=== PATIENT | female | born 1990 | race Caucasian/White ===

== ENCOUNTER 2021-07-09 14:32 | Outpatient (RCR) | payer BC, SELFPAY ==
[2021-07-09 16:06] LABS: Beta HCG Quantitative 405.96 mIU/ML
[2021-07-12] MEDS: RHO(D) IMMUNE GLOBULIN 300 MCG/2 ML SYRINGE IM (09:52)
== END 2021-10-07 23:59 | disposition home or self-care (01) ==
LOC: ANHLAB 14:32
PROVIDERS: PCP Family Medicine; Visit Provider Obstetrics & Gynecology
DX: N93.9 Abnormal uterine and vaginal bleeding, unspecified (principal); Z29.13 Encounter for prophylactic Rho(D) immune globulin; O36.0190 Maternal care for anti-D [Rh] antibodies, unspecified trimester, not applicable or unspecified; Z3A.00 Weeks of gestation of pregnancy not specified
CPT/HCPCS: 36415; 84702; 85461; 90384; 96372; J2790

== ENCOUNTER 2021-10-22 15:25 | Outpatient (CLI) | payer BC, SELFPAY ==
--- NOTE | ~2021-10-22 | US_ITS ---
US OB <=14 wk fetus w TV DATE: 10/22/2021 16:09 INDICATION: Gestational size and date determination TECHNIQUE: Real-time imaging via transabdominal and transvaginal approaches COMPARISON: None FINDINGS: The uterus measures 9.7 cm height, 5.1 cm AP and 6.2 cm transverse dimension. An irregular intrauterine gestational sac is identified with inhomogeneous surrounding hyperechogenicity . No feta l pole or yolk sac is identified. An adjacent approximately 6 x 15 mm small fluid collection is noted consistent with small subchorionic hemorrhage. The left ovary was not visualized. Right ovary measures 2.1 x 1.1 x 2 cm, with probable 7 x 10 mm cys t. No abnormal free fluid collection is noted in the pelvis. IMPRESSION: Irregular gestational sac, suboptimal surrounding decidual reaction and adjacent subchori onic bleed. No pole or yolk sac is identified. Findings suggest nonviable gestation. Consider s hort-term follow-up ultrasound imaging. Reviewed, dictated and finalized at [facility]. Reviewed, dictated and finalized at [facility]. DEVELOPER DESIGNER IMPRESSION: Irregular gestational sac, suboptimal surrounding decidual reaction and adjacent subchorionic bleed. No pole or yolk sac is identified. Find ings suggest nonviable gestation. Consider short-term follow-up ultrasound imag ing.
== END 2021-10-22 15:26 | disposition home or self-care (01) ==
LOC: ANHIMG 15:29
PROVIDERS: PCP Family Medicine; Visit Provider Obstetrics & Gynecology
DX: O20.0 Threatened abortion (principal)
CPT/HCPCS: 76801; 76817

== ENCOUNTER 2022-08-25 18:41 | Emergency (ER) | payer BC, SELFPAY ==
[2022-08-25] VITALS (10 sets, daily range): BP systolic 115–150; BP diastolic 69–84; PULSE 82–114; RESP 18–20; TEMP 36.9; O2SAT 96–100
[2022-08-25 20:36] LABS: Appearance Urine Slightly Cloudy (Clear); Bilirubin Urine Negative (Negative); Blood Urine Negative (Negative); Color Urine Yellow (Yellow); Glucose Urine UA Negative (Negative); Ketones Urine Negative (Negative); Leukocyte Esterase Ur Negative LEU/UL (Negative); Nitrate Urine Negative (Negative); Protein Urine Negative (Negative); Urobilinogen Urine 0.2 mg/dL (<2.0); pH Urine 6.5 (5.0-9.0)
[2022-08-25 20:36] LABS: Basophils Absolute Auto 0.1 K/mm3 (0.0-0.1); Basophils Percent Auto 0.5 % (0.2-1.2); Eosinophils Absolute Auto 0.2 K/mm3 (0-0.3); Hematocrit 32.9 % (37.0-47.0); Immature Granulocyte Absolute 0.14 K/mm3 (0.00-0.031); Immature Granulocyte Percent A 1.5 % (0-0.5); Lymphocytes Absolute Auto 2.31 K/mm3 (0.9-3.2); Lymphocytes Percent Auto 24.3 % (18.3-44.2); Mean Corpuscular HGB Conc 33.4 g/dl (32-36); Mean Corpuscular Hemoglobin 29.2 pg (26-34); Mean Corpuscular Volume 87.3 fl (80-100); Mean Platelet Volume 10.5 fl (7.4-10.4); Monocytes Absolute Auto 0.9 K/mm3 (0.1-0.6); Monocytes Percent Auto 9.4 % (2.6-8.5); Neutrophils Absolute Auto 5.9 K/mm3 (1.3-6.7); Neutrophils Percent Auto 62.3 % (45.5-73.1); Platelet Count Result 256 k/mm3 (150-375); Red Blood Count 3.77 M/mm3 (4.2-5.4); Red Cell Distribution Width 13.4 % (11.5-14.5); White Blood Count 9.5 K/mm3 (4.5-10.0)
[2022-08-25 20:53] LABS: Add Urine Microscopic? YES; Bacteria Urine 2+ /hpf; Mucus Urine Rare /lpf; RBC Urine 0-2 /hpf (0-2); Squamous Epithelial Cell Urine Many /hpf (Few); WBC Urine 0-3 /hpf
[2022-08-25 20:56] LABS: Alanine Aminotransferase 16 U/L (6-35); Albumin Level 3.6 g/dL (3.5-5.1); Alkaline Phosphatase 54 U/L (38-126); Anion Gap 7 mmol/L (8-16); Aspartate Amino Transferase 17 U/L (14-36); Bilirubin,Total 0.3 mg/dL (0.2-1.3); Blood Urea Nitrogen 5 mg/dL (7-17); Carbon Dioxide 20 mmol/L (22-30); Chloride 108 mmol/L (98-107); Estimated CRCL calculation 152 ml/min; Estimated Glomerular Filt Rate > 60; Glucose 103 mg/dL (65-110); Potassium 3.8 mmol/L (3.4-5.0); Sodium 135 mmol/L (137-145)
[2022-08-25] MEDS: SODIUM CHLORIDE 0.9% IV 1,000 ML 999 ML IV CONT (21:18)
--- NOTE | 2022-08-25 21:27 | ED.HA ---
HPI - Headache General Chief Complaint: Headache Stated Complaint: 22WKS PREG, HEADACHE Time Seen by Provider: 08/25/22 19:43 Source: patient Mode of arrival: ambulatory Limitations: no limitations History of Present Illness HPI Narrative: Patient is a 32-year-old female transitioning to male, G1, P0, currently 22 weeks gestation, presenting with frontal headache. Patient reports that the pain began approximately 1 day ago. He has been taking Tylenol at home with minimal relief. He reports photophobia and phonophobia, intermittent nausea, but denies vision changes, dizziness. He called PUNCH CARD OPERATOR on-call and was referred to the ED for further evaluation to rule out possible preeclampsia. Patient denies having any previous issues with elevated blood pressures. Denies abdominal pain, vaginal bleeding, fevers, swelling. Patient sees Dr. Reeves. Related Data Allergies Allergy/AdvReac Type Severity Reaction Status Date / Time No Known Allergies Allergy Unverified 01/30/22 12:59 Review of Systems Review of Systems: CONSTITUTIONAL: Denies fever, chills, or sweats. EYES: Reports photophobia. Denies visual changes. ENT: Reports phonophobia. Denies rhinorrhea, congestion, sore throat. CARDIOVASCULAR: Denies chest pain. Denies edema. RESPIRATORY: Denies dyspnea. GASTROINTESTINAL: Reports nausea. Denies abdominal pain, vomiting. GENITOURINARY: Denies vaginal bleeding, dysuria or hematuria. NEUROLOGIC: Reports headache. Denies dizziness, numbness, or weakness. All systems reviewed & are unremarkable except as noted in HPI and below PMFSH Past Medical History Medical History ADHD Anxiety Depression IBS (irritable bowel syndrome) Surgical History Surgical History H/O bilateral mastectomy Family History Family History Father Family history of suicide Social History Social History Smoking packs per day: 0.5 Smoking cigarettes per day: 10.0 Years smoked: 4 Smoking pack-years: 2.00 Smoking status: Never smoker Tobacco type: e-cigarettes/vaping Second hand tobacco smoke exposure: No Smoking end date: 09/29/11 Alcohol intake: current Alcohol use details: rare Substance use: never Substance use type: does not use Additional occupation/education comments: home Gender identity (if verbalized by the patient): Transgender Male Sexual Orientation (if Verbalized by the Patient): Lesbian, Nichols, or Homosexual Exam Narrative: GENERAL: Well appearing, morbidly obese, non-toxic, in no acute distress. HEAD: Normocephalic, atraumatic. EYES: PERRLA/EOMI, conjunctiva clear. No pain with eye movement. NECK: Supple. No adenopathy, no masses. RESPIRATORY: Airway patent, respirations nonlabored. Clear to auscultation bilaterally, no rales, rhonchi, wheezing. CARDIOVASCULAR: Regular rate and rhythm without murmurs, rubs, or gallops. Radial pulses 2+ and equal bilaterally. ABDOMINAL: Soft, nontender, nondistended, no hepatosplenomegaly. Normoactive BS. MUSCULOSKELETAL: Moves all extremities. Strength/ROM intact without gross deformities. No edema. SKIN: Warm, dry, normal color. No rashes. NEURO: A&O X3. Speech clear. Cranial nerves II-XII grossly intact. Steady gait. No ataxic movements. Strength 5 out of 5 in upper and lower extremities bilaterally, equal sanitarian aide strength, no focal deficits. PSYCHIATRIC: Appropriate mood and affect. Normal interaction. Course Consultations Consultation #1: Discussed case with Dr. Lisa Zamarripa, PUNCH CARD OPERATOR hardwood floor installation helper, patient can follow-up in the office. No further recommendations at this time. Date: 08/25/22 Vital Signs Vital signs: Vital Signs Temperature 98.5 F 08/25/22 18:55 Pulse Rate 114 H 08/25/22 18:55 Respiratory Rate 20 08/25/22 18:55 Blo
== END 2022-08-25 22:35 | disposition home or self-care (01) ==
PROVIDERS: Emergency Provider Physician Assistant; PCP Obstetrics & Gynecology
DX: O26.892 Other specified pregnancy related conditions, second trimester (principal); R51.9 Headache, unspecified; R82.71 Bacteriuria; O99.612 Diseases of the digestive system complicating pregnancy, second trimester; K58.9 Irritable bowel syndrome, unspecified; O99.342 Other mental disorders complicating pregnancy, second trimester; F41.9 Anxiety disorder, unspecified; F90.9 Attention-deficit hyperactivity disorder, unspecified type; F32.A Depression, unspecified; Z90.13 Acquired absence of bilateral breasts and nipples; Z87.891 Personal history of nicotine dependence; Z3A.22 22 weeks gestation of pregnancy
CPT/HCPCS: 36415; 80053; 81001; 85025; 87086; 96361; 96374; 99284; J0131; J7030

== ENCOUNTER 2022-10-14 08:00 | Outpatient (RCR) | payer SELFPAY ==
[2022-10-14] MEDS: RHO(D) IMMUNE GLOBULIN 300 MCG/2 ML SYRINGE IM (08:36)
== END 2023-01-09 23:59 | disposition home or self-care (01) ==
LOC: ANHLAB 08:00
PROVIDERS: PCP Obstetrics & Gynecology; Visit Provider Obstetrics & Gynecology
DX: Z29.13 Encounter for prophylactic Rho(D) immune globulin (principal); O36.0190 Maternal care for anti-D [Rh] antibodies, unspecified trimester, not applicable or unspecified; Z3A.00 Weeks of gestation of pregnancy not specified
CPT/HCPCS: 36415; 85461; 86850; 86900; 86901; 90384; 96372; J2790

== ENCOUNTER 2022-11-18 18:37 | Observation (INO) | payer BC, SELFPAY ==
[2022-11-18] VITALS (7 sets, daily range): BP systolic 111–130; BP diastolic 57–67; PULSE 82–89; BMI 43.9
[2022-11-18 19:22] LABS: Appearance Urine Clear (Clear); Bilirubin Urine Negative (Negative); Blood Urine Trace-intact (Negative); Color Urine Yellow (Yellow); Glucose Urine UA Negative (Negative); Ketones Urine Negative (Negative); Leukocyte Esterase Ur Negative LEU/UL (NEGATIVE); Nitrate Urine Negative (Negative); Protein Urine Negative (Negative); Urobilinogen Urine 0.2 mg/dL (<2.0)
[2022-11-18 19:26] LABS: Bacteria Urine Trace /hpf; RBC Urine 0-2 /hpf (0-2); Squamous Epithelial Cell Urine Rare /hpf (Few); WBC Urine 0-3 /hpf (0-3)
[2022-11-18 19:27] LABS: Add Urine Microscopic? YES
--- NOTE | 2022-11-18 19:28 | OBADM ---
This patient, George Ramsey, admitted to the OB room OB Post 117 for observation. Patient/family oriented to hospital policies and general routines including ID bracelet, bed and alarms, visiting hours, pain management, procedures, bathroom and other care routines, personal items, smoking policy, room service/diet, and visiting hours. Patient/Family are encouraged to report perceived risks to care and to ask questions if they do not understand what they are told or what they should do.
--- NOTE | 2022-11-18 20:25 | PC.NURSE ---
Dr Reeves updated on contractions that were noted by patient and palpated. Ok to perform sve, if closed may dc home.
--- NOTE | 2022-11-25 07:39 | P.PNOB_ITS ---
OB - Triage/Final Diagnosis Visit Information Comments/Additional reasons for admission: I have assessed the risk for this patient, George Ramsey, and determined that she would benefit from observation care. Evaluation Laboratory results: Laboratory Tests 11/18/22 19:08 Urine Color Yellow Urine Appearance Clear Urine pH 7.0 Ur Specific [place] 1.010 Urine Protein Negative Urine Glucose (UA) Negative Urine Ketones Negative Ur Blood (Man) Trace-intact Urine Nitrate Negative Urine Bilirubin Negative Urine Urobilinogen 0.2 Ur Leukocyte Esterase Negative Urine RBC 0-2 Urine WBC 0-3 Ur Squamous Epith Cells Rare Urine Bacteria Trace Final Diagnosis (1) contractions: Code(s): O47.00 - False labor before 37 completed weeks of gestation, unspecified trimester Status: Acute
== END 2022-11-18 20:45 | disposition home or self-care (01) ==
PROVIDERS: Admitting Provider Obstetrics & Gynecology; PCP Family Medicine; Visit Provider Obstetrics & Gynecology
DX: O47.03 False labor before 37 completed weeks of gestation, third trimester (principal); Z3A.34 34 weeks gestation of pregnancy
CPT/HCPCS: 81001; 87086; 87088; G0378; G0379

== ENCOUNTER 2022-12-23 11:08 | Observation (INO) | payer BC, SELFPAY ==
--- NOTE | 2022-12-23 11:25 | OBADM ---
This patient, George Ramsey, admitted to the OB room Labor/Delivery/Recovery 107 for observation. Patient/family oriented to hospital policies and general routines including ID bracelet, bed and alarms, visiting hours, pain management, procedures, bathroom and other care routines, personal items, smoking policy, room service/diet, and visiting hours. Patient/Family are encouraged to report perceived risks to care and to ask questions if they do not understand what they are told or what they should do.
--- NOTE | 2022-12-23 11:37 | PC.NURSE ---
Dr Reeves notified of adm c/o contractions. Will be down to see patient in a little bit.
--- NOTE | 2022-12-23 13:00 | WPDOBADMIT ---
Obstetrics - Admit Note Admission Note: record reviewed. Additions to the history and/or subsequent changes in the physical findings follow. 32 y/o at 38 6/7 weeks here with contractions. AVSS NST reactive TOCO: contractions irregularly ABD soft, nontender, gravid, vertex EXT nontender Cervix FT//-3. A: False labor at term P: Reviewed labor precautions. Plans elective induction next week.
--- NOTE | 2023-01-15 14:37 | PM.OBTRLD ---
OB - Triage/Final Diagnosis Visit Information Comments/Additional reasons for admission: I have assessed the risk for this patient, George Ramsey, and determined that she would benefit from observation care. Final Diagnosis (1) False labor: Code(s): O47.9 - False labor, unspecified Status: Acute
== END 2022-12-23 13:49 | disposition home or self-care (01) ==
PROVIDERS: Admitting Provider Obstetrics & Gynecology; PCP Family Medicine; Visit Provider Obstetrics & Gynecology
DX: O47.1 False labor at or after 37 completed weeks of gestation (principal); Z3A.39 39 weeks gestation of pregnancy
CPT/HCPCS: G0378

== ENCOUNTER 2022-12-25 11:02 | Inpatient (IN) | payer BC, SELFPAY ==
[2022-12-25] VITALS (139 sets, daily range): BP systolic 107–144; BP diastolic 56–88; PULSE 76–135; RESP 20; TEMP 36.3–37.2; O2SAT 93–100; BMI 46.3
--- NOTE | 2022-12-25 13:44 | P.PNAN_ITS ---
Anes - Eval Pre Procedure Procedure: labor epidural Date/Time: 12/25/22 13:45 Preop Diagnosis: labor pain Pre Op Diagnosis: IOL Patient Data Age: 32 Gender: M Height: Weight: Last Vital Signs Pulse 83 12/25/22 13:31 BP 144/86 H 12/25/22 13:31 Pulse Ox 99 12/25/22 13:38 Allergies Allergy/AdvReac Type Severity Reaction Status Date / Time No Known Allergies Allergy Unverified 01/30/22 12:59 Home Medications Medication Instructions Recorded Confirmed Type bupropion HCl 150 mg 24 hr tablet, 150 mg PO DAILY 11/18/22 11/18/22 History extended release citalopram 20 mg tablet (Celexa) 30 mg PO DAILY 11/28/22 History lorazepam 0.5 mg tablet 0.5 mg PO DAILY PRN Anxiety 11/28/22 11/28/22 History prenat.vits,rhea,ptu-otcs-kycmv 1 tablet PO DAILY 11/28/22 11/28/22 History Patient hx anesthesia problems: none Family hx anesthesia problems: none Results Review: All pre-operative results and documents have been reviewed as part of the pre- operative evaluation. [facility] Past Medical History Medical History ADHD Anxiety Depression IBS (irritable bowel syndrome) Surgical History Surgical History H/O bilateral mastectomy Family History Family History Father Family history of suicide Social History Social History Smoking packs per day: 0.5 Smoking cigarettes per day: 10.0 Years smoked: 4 Smoking pack-years: 2.00 Smoking status: Never smoker Tobacco type: e-cigarettes/vaping Second hand tobacco smoke exposure: No Smoking end date: 09/29/11 Alcohol intake: current Alcohol use details: rare Substance use: never Substance use type: does not use Living arrangements: with family Occupation/Education: other Additional occupation/education comments: home Gender identity (if verbalized by the patient): Transgender Male Sexual Orientation (if Verbalized by the Patient): Lesbian, Nichols, or Homosexual Spiritual care concerns: No Exam Day of Procedure 12/25/22 13:45 Patient weight: normal Heart: regular rate and rhythm Lungs: clear to auscultation and normal air movement Airway: Mallampati scale Neurological: alert and oriented
[2022-12-25 14:02] LABS: Basophils Percent Auto 0.4 % (0.2-1.2); Eosinophils Absolute Auto 0.1 K/mm3 (0-0.3); Eosinophils Percent Auto 0.8 % (0-4.4); Hematocrit 36.8 % (42.0-52.0); Hemoglobin 12.1 g/dL (14.0-18.0); Immature Granulocyte Absolute 0.09 K/mm3 (0.00-0.031); Immature Granulocyte Percent A 0.8 % (0-0.5); Lymphocytes Absolute Auto 1.61 K/mm3 (0.9-3.2); Lymphocytes Percent Auto 14.4 % (18.3-44.2); Mean Corpuscular HGB Conc 32.9 g/dl (32-36); Mean Corpuscular Hemoglobin 28.3 pg (26-34); Mean Platelet Volume 11.7 fl (7.4-10.4); Neutrophils Absolute Auto 8.3 K/mm3 (1.3-6.7); Neutrophils Percent Auto 74.6 % (45.5-73.1); Platelet Count Result 211 k/mm3 (150-375); Red Blood Count 4.28 M/mm3 (4.6-6.20); Red Cell Distribution Width 14.1 % (11.5-14.5); White Blood Count 11.2 K/mm3 (4.5-10.0)
[2022-12-25] MEDS: LACTATED RINGERS 1,000 ML 999 ML IV CONT (14:18)
--- NOTE | 2022-12-25 14:21 | LDADM ---
This patient, George Ramsey, was admitted to Labor/Delivery/Recovery 106 on 12/25/22 at 11:02. Plans for labor, pain management and were discussed with patient. Patient/family oriented to hospital policies and general routines including ID bracelet, bed and alarms, visiting hours, pain management, procedures, bathroom and other care routines, personal items, smoking policy, room service/diet and guest tray routines, infant security routines, and visiting hours. Patient/Family are encouraged to report perceived risks to care and to ask questions if they do not understand what they are told or what they should do. See OBIX for further documentation.
[2022-12-25] MEDS: MORPHINE SULFATE INJ (*CRX) 10 MG/ML AMP IM (14:58)
--- NOTE | 2022-12-25 16:30 | PM.IMHP ---
H&P: HPI History of Present Illness Date/Time: 12/26/22 08:55 Chief Complaint: Contractions Narrative: 32 y/o at 39 2/7 weeks here with contractions. GBS neg. Review of Systems Review of Systems: All systems reviewed & are unremarkable except as noted in HPI and below PMFSH Past Medical History Medical History ADHD Anxiety Depression IBS (irritable bowel syndrome) Surgical History Surgical History H/O bilateral mastectomy Family History Family History Father Family history of suicide Social History Social History Smoking packs per day: 0.5 Smoking cigarettes per day: 10.0 Years smoked: 4 Smoking pack-years: 2.00 Smoking status: Former smoker Tobacco type: e-cigarettes/vaping Second hand tobacco smoke exposure: No Smoking end date: 09/29/11 Alcohol intake: current Alcohol use details: rare Substance use: never Substance use type: does not use Lack of Transportation: No Lack of Food: Never True Current Housing: I Have Housing Concerned About Future Housing: No Difficulty Paying Gas/Electric Bills: No Difficulty Paying for Meds: No Currently Unemployed: No Education: Trade/Vocational Certificate Difficulty w/ Childcare or Family Care: No Living arrangements: with family Occupation/Education: other Additional occupation/education comments: home Gender identity (if verbalized by the patient): Transgender Male Sexual Orientation (if Verbalized by the Patient): Lesbian, Nichols, or Homosexual Spiritual care concerns: No Comments Female at , transitioning to male. Pronouns are he/his. Meds Home Medications and Allergies Home Medications Medication Instructions Recorded Confirmed Type bupropion HCl 150 mg 24 hr tablet, 150 mg PO DAILY 11/18/22 12/25/22 History extended release citalopram 20 mg tablet (Celexa) 30 mg PO DAILY 11/28/22 12/25/22 History lorazepam 0.5 mg tablet 0.5 mg PO DAILY PRN Anxiety 11/28/22 12/25/22 History prenat.vits,rhea,sjd-gfpg-iecwa 1 tablet PO DAILY 11/28/22 12/25/22 History Allergies Allergy/AdvReac Type Severity Reaction Status Date / Time No Known Allergies Allergy Verified 12/25/22 14:25 Vital Signs Vital Signs - 24 hr 12/25/22 13:03 12/25/22 13:08 12/25/22 13:13 Temperature Pulse Rate Respiratory Rate Blood Pressure Pulse Oximetry 100 100 98 Oxygen Delivery 12/25/22 13:16 12/25/22 13:18 12/25/22 13:21 Temperature Pulse Rate 81 Respiratory Rate Blood Pressure 143/82 H Pulse Oximetry 99 100 Oxygen Delivery 12/25/22 13:21 12/25/22 13:26 12/25/22 13:31 Temperature Pulse Rate 83 Respiratory Rate Blood Pressure 144/86 H Pulse Oximetry 97 97 98 Oxygen Delivery 12/25/22 13:35 12/25/22 13:38 12/25/22 13:52 Temperature Pulse Rate Respiratory Rate Blood Pressure Pulse Oximetry 99 99 99 Oxygen Delivery 12/25/22 13:57 12/25/22 14:01 12/25/22 14:06 Temperature Pulse Rate Respiratory Rate Blood Pressure Pulse Oximetry 99 98 100 Oxygen Delivery 12/25/22 14:11 12/25/22 14:16 12/25/22 14:21 Temperature Pulse Rate Respiratory Rate Blood Pressure Pulse Oximetry 100 100 99 Oxygen Delivery 12/25/22 14:26 12/25/22 14:31 12/25/22 14:36 Temperature Pulse Rate Respiratory Rate Blood Pressure Pulse Oximetry 99 100 100 Oxygen Delivery 12/25/22 14:41 12/25/22 14:46 12/25/22 15:05 Temperature 37.2 C Pulse Rate 84 Respiratory Rate 20 Blood Pressure 118/76 Pulse Oximetry 98 100 Oxygen Delivery 12/25/22 15:07 12/25/22 15:08 12/25/22 15:12 Temperature Pulse Rate 76 Respiratory Rate Blood Pressure 107/66 Pulse O
[2022-12-25] MEDS: LACTATED RINGERS 1,000 ML 125 ML IV CONT (17:20)
[2022-12-25] MEDS: CITALOPRAM HYDROBROMIDE 10 MG TABLET 30 MG PO (19:51)
[2022-12-25] MEDS: fentaNYL CITRATE INJ (*CRX) 100 MCG/2 ML VIAL 50 MCG IV PUSH (21:19)
[2022-12-25] MEDS: ACETAMINOPHEN/BUTALBITAL/CAFFEINE 325-50-40 MG TABLET (FIORICET) 1 TAB PO (22:39)
[2022-12-25] MEDS: fentaNYL CITRATE INJ (*CRX) 100 MCG/2 ML VIAL IV PUSH (22:45)
[2022-12-26] VITALS (341 sets, daily range): BP systolic 73–166; BP diastolic 33–133; PULSE 76–135; RESP 13–18; TEMP 36.5–37.7; O2SAT 89–100
[2022-12-26] MEDS: fentaNYL CITRATE INJ (*CRX) 100 MCG/2 ML VIAL IV PUSH ×3 (00:31→02:50)
[2022-12-26] MEDS: LACTATED RINGERS 1,000 ML 999 ML IV CONT (03:39)
[2022-12-26] MEDS: LACTATED RINGERS 1,000 ML 125 ML IV CONT ×3 (03:58→17:41)
[2022-12-26] MEDS: OXYTOCIN 30 UNITS/NS 500 ML 30 UNITS/500 ML BAG IV CONT (04:35)
[2022-12-26] MEDS: PHENYLEPHRINE 1,000 MCG/10 ML SYRINGE 100 MCG IV PUSH (04:38)
[2022-12-26] MEDS: FAMOTIDINE 20 MG/2 ML VIAL IV PUSH (06:45)
[2022-12-26] MEDS: CALCIUM CARBONATE (TUMS) 500 MG (200 MG ELEMENTAL) PO (06:50)
--- NOTE | 2022-12-26 07:43 | PM.OBPNLAB ---
Pain Control Date/time seen: 12/26/22 07:43 Pain control: tolerating well and epidural Pelvic Exam Dilation (cm): 4 station: -2 Amniotic membrane status: Ruptured Comments: meconium fluid seen Contractions Monitor mode: External Contraction pattern: Irregular Status status: Category ll
--- NOTE | 2022-12-26 09:00 | PM.OBPNLAB ---
Pain Control Date/time seen: 12/26/22 09:00 Comfortable with epidural. AROM per Dr. Lisa Zamarripa this morning. Pelvic Exam Dilation (cm): 5 Effacement (%): 90 station: -2 Amniotic membrane status: Ruptured Contractions Monitor mode: External Contraction pattern: Regular Status status: Category l Assessment and Plan Pitocin rate (mU/min): 6 Plan: continuous present management
[2022-12-26] MEDS: buPROPion HCL XL (24 HR) 150 MG TABCR PO (09:18)
[2022-12-26] MEDS: CYCLOBENZAPRINE HCL 10 MG TABLET PO (09:43)
[2022-12-26 13:57] LABS: Rapid Plasma Reagin Non-Reactive (NonReactive)
[2022-12-26] MEDS: KETOROLAC 30 MG/ML VIAL (*BKC) IV PUSH ×2 (15:05→21:59)
--- NOTE | 2022-12-26 17:54 | P.PNAN_ITS ---
Anes - Eval Final PreProcedure Day of Procedure 12/26/22 17:54 Patient weight: morbidly obese Heart: regular rate and rhythm Lungs: clear to auscultation and normal air movement Airway: Mallampati scale class II Neurological: alert and oriented Last oral intake: >/= 8 hours ASA classification: III Emergent: no Anesthetic plan: proceed Anesthesia type and monitoring: regional epidural and standard monitoring Other findings: To C/S Results Review: All pre-operative results and documents have been reviewed as part of the pre- operative evaluation. Informed Consent: The patient's anesthetic plan and its attendant risks and benefits were discussed with the patient/family/POA. Questions were solicited and answers provided to the satisfaction of the patient/family/POA.
--- NOTE | 2022-12-26 17:54 | PM.OBPNLAB ---
Pain Control Date/time seen: 12/26/22 17:54 Comments: Comfortable with epidural. Complains of neck and upper back pain. Pelvic Exam Dilation (cm): 7 Effacement (%): 90 station: -2 Amniotic membrane status: Ruptured Comments: Cervical exam unchanged for >4 hours despite adequate contractions by IUPC monitoring. Contractions Monitor mode: Internal Contraction pattern: Regular Status status: Category l Assessment and Plan Comments: A: Arrest of dilation in labor. P: Offered continued augmentation of labor vs. primary . We reviewed risks, benefits and alternatives in detail. He understands risks of surgery to include risks of anesthesia, risks of pain, infection, bleeding, blood products, thromboembolic phenomena and damage to adjacent structures such as bowel, bladder, ureters, blood vessels and nerves. He understands all these risks and elects to proceed with primary delivery.
--- NOTE | 2022-12-26 19:46 | PM.OBPRVD ---
OB - Delivery Note Procedure Delivery date: 12/26/22 Procedure: Procedures Operation Date: 12/26/22 18:30 <No data on this case meets the specified criteria> Primary low transverse delivery Intrapartal Events: Arrest of Dilation Induction method: None Delivery augmentation: Rupture of Membranes and Pitocin Delivery monitor: External FHT, External Uterine and Internal Uterine Route of delivery: Specimen: Yes (cord blood, placenta) Anesthesia type: Epidural Disposition: PACU Complications: None Narrative: The patient was taken to the operating room where he was prepared and draped in the usual sterile fashion in dorsal supine position with a leftward tilt. He received cefazolin preoperatively. Epidural anesthesia was found to be adequate. A Pfannenstiel skin incision was made and carried through to the underlying layer of the fascia. The fascia was incised in the midline and the incision was extended laterally. The fascia was dissected free of the underlying rectus muscles. The rectus muscles were in the midline. The peritoneum was identified, tented up and entered sharply. The peritoneal incision was extended superiorly and inferiorly with good visualization of the bladder. The bladder blade was placed. The vesicouterine peritoneum was identified, tented up and entered sharply. The incision was extended laterally and the bladder flap was developed. The bladder blade was replaced. The uterus was then incised sharply in a transverse fashion along the lower uterine segment. The incision was extended laterally. The infant's head was delivered atraumatically to the sterile field, followed by the body. The nose and mouth were bulb suctioned. After a delay, the cord was clamped and cut. The was handed off the field. Cord blood was collected. The placenta was removed manually and was passed off the field. The uterus was exteriorized and cleared of all clots and debris. The uterine incision was reapproximated using 0 Monocryl in a running, locked fashion. A second, imbricating layer of the same suture was run. Excellent hemostasis resulted as did excellent reapproximation of the normal anatomy. The uterus was returned the abdomen. The pelvis was irrigated copiously with warmed normal saline. Rigorous hemostasis was assured. The fascial layer was reapproximated using 0 Vicryl in a running fashion. The skin was closed with a running, subcuticular stitch of 4 0 Vicryl. Dermaflex was applied externally. Sponge, lap, needle and instrument counts were correct. The patient was taken to the recovery room in stable condition. The went to the nursery in stable condition. I was present and scrubbed the entire procedure. [place] Baby Date of : 12/26/22 Time of : 19:05 Weeks of gestation at delivery: 39 Infant gender: Female Weight (pounds): 8 Weight (ounces): 1 presentation: vertex Placenta delivery description: Manual Removal and Normal Configuration Cord Vessel Description: 3 Vessels and Delayed Cord Clamping score one minute: 7 score five minutes: 9
--- NOTE | 2022-12-26 19:50 | PM.OBDSVD ---
DS: Admitting Diagnosis Discharge Date 12/28/22 Admitting Diagnosis IUP at 39 2/7 weeks Labor DS: Discharge Diagnosis Discharge Diagnosis (1) Term : Code(s): Z34.90 - Encounter for supervision of normal , unspecified, unspecified trimester Status: Acute (2) delivery delivered: Code(s): O82 - Encounter for delivery without indication Status: Acute OB - DS: Summary OB Procedures : NST OB Procedures Intrapartum: OB Procedures: : None Peripartum Data Procedures: Procedures Operation Date: 12/26/22 18:30 <No data on this case meets the specified criteria> Time Spent with Patient Time attestation: Total time spent providing and/or coordinating discharge services: DS: Data Data Completed and Pending Labs on day of discharge: Labs from last 24 hours 12/25/22 13:53 RPR Non-reactive Discharge Plan Discharge Attending physician on discharge: Donavan Reeves Discharging Clinician: Donavan Reeves Patient Disposition: Home, Self-Care Activity: may shower, may drive after 2 weeks and pelvic rest Diet: regular Wound Care Instructions: incision open to air Discharge Instructions: Call or return if temperature above 100.4? F, increased abdominal pain, increased vaginal bleeding or any new problems. Patient Instructions: How to Stop Smoking (DC) Stand Alone Forms: General Discharge Information Follow-up/Referrals: Donavan Reeves MD [Physician] - 4 Weeks Discharge Medications: New hydrocodone-acetaminophen 5-325 mg tablet 1 - 2 tablet PO Q6H PRN (Reason: pain) Qty: 30 0RF ibuprofen 600 mg tablet 600 mg PO Q6H PRN (Reason: cramps) Qty: 30 0RF Continued lorazepam 0.5 mg Tablet 0.5 mg PO DAILY PRN (Reason: Anxiety) prenat.vits,rhea,hee-lejt-wnsdz Tablet 1 tablet PO DAILY citalopram [Celexa] 20 mg tablet 30 mg PO DAILY bupropion HCl 150 mg tablet extended release 24 hr 150 mg PO DAILY Date of admission: 12/25/22 11:02 Primary Care Provider: Marshall Lynn Admitting Provider: Donavan Reeves Attending physician on admission: Donavan Reeves Condition: Stable
[2022-12-26] MEDS: OXYTOCIN 30 UNITS/NS 500 ML 30 UNITS/500 ML BAG 125 UNITS IV CONT (20:28)
[2022-12-26] MEDS: CITALOPRAM HYDROBROMIDE 10 MG TABLET 30 MG PO (21:58)
--- NOTE | 2022-12-26 22:21 | OBPPTRN ---
Patient transferred to post room #290 via stretcher. Support person present. Oriented to unit, room, information board, rooming in, admission packet and security measures. Patient verbalizes understanding.
[2022-12-27] MEDS: DEXTROSE 5%/0.45% SOD CHL 1,000 ML 125 ML IV CONT (01:01)
[2022-12-27 04:19] VITALS: BP 115/73; PULSE 92; RESP 16; TEMP 36.6; O2SAT 97
[2022-12-27] MEDS: HYDROcodone/acetaminophen (*CRX) 10-325 MG TABLET 1 TAB PO ×6 (04:39→21:48)
[2022-12-27 05:20] LABS: Basophils Absolute Auto 0.1 K/mm3 (0.0-0.1); Basophils Percent Auto 0.5 % (0.2-1.2); Eosinophils Absolute Auto 0.1 K/mm3 (0-0.3); Eosinophils Percent Auto 0.6 % (0-4.4); Hemoglobin 10.7 g/dL (12.0-15.0); Immature Granulocyte Percent A 0.7 % (0-0.5); Lymphocytes Absolute Auto 2.08 K/mm3 (0.9-3.2); Lymphocytes Percent Auto 14.2 % (18.3-44.2); Mean Corpuscular HGB Conc 30.6 g/dl (32-36); Mean Corpuscular Hemoglobin 28.1 pg (26-34); Mean Corpuscular Volume 91.9 fl (80-100); Mean Platelet Volume 11.3 fl (7.4-10.4); Monocytes Absolute Auto 1.2 K/mm3 (0.1-0.6); Monocytes Percent Auto 7.9 % (2.6-8.5); Neutrophils Absolute Auto 11.2 K/mm3 (1.3-6.7); Neutrophils Percent Auto 76.1 % (45.5-73.1); Platelet Count Result 165 k/mm3 (150-375); Red Blood Count 3.81 M/mm3 (4.2-5.4); Red Cell Distribution Width 14.1 % (11.5-14.5); White Blood Count 14.7 K/mm3 (4.5-10.0)
--- NOTE | 2022-12-27 06:01 | PM.OBPNVD ---
OB - PN: Subj Subjective Date/time seen: 12/27/22 06:01 Patient comments: no complaints and pain well controlled baby status: doing well OB - PN: Obj Data Labs 12/27/22 04:35 Labs: Laboratory Results - last 24 hr 12/25/22 12/27/22 13:53 04:35 WBC 14.7 H RBC 3.81 L Hgb 10.7 L Hct 35.0 L MCV 91.9 D MCH 28.1 MCHC 30.6 L RDW 14.1 Plt Count 165 MPV 11.3 H Immature Gran % (Auto) 0.7 H Neut % (Auto) 76.1 H Lymph % (Auto) 14.2 L [place] % (Auto) 7.9 Eos % (Auto) 0.6 Baso % (Auto) 0.5 Lymph # (Auto) 2.08 [place] # (Auto) 1.2 H Eos # (Auto) 0.1 Baso # (Auto) 0.1 Abs Immat Gran (auto) 0.10 H Absolute Neuts (auto) 11.2 H Absolute Nucleated RBC 0.0 Nucleated RBC % 0.0 RPR Non-reactive OB - PN A/P Plan day: 1 Plan: routine care Time Spent With Patient Time: Total time spent is greater than 50% in coordination of care (as documented) at patient's floor/unit and/or counseling patient: Time with patient: less than 15 minutes Exam Const: General: cooperative, healthy appearing and comfortable Nutritional Appearance: overweight Orientation/consciousness: oriented to person, oriented to place and oriented to time GI: Inspection: normal to inspection and incision (Wound clean dry and intact) Auscultation: normal bowel sounds
[2022-12-27 07:40] VITALS: BP 108/71; PULSE 81; RESP 16; TEMP 36.6; O2SAT 98
[2022-12-27] MEDS: buPROPion HCL XL (24 HR) 150 MG TABCR PO (07:46)
[2022-12-27] MEDS: DOCUSATE SODIUM 100 MG CAPSULE PO ×2 (07:46→15:22)
--- NOTE | 2022-12-27 10:17 | WPDANLDPN2 ---
Anes-Prog Note L&D Date/Time: 12/27/22 10:17 Comfortable throughout: section Neuraxial method: epidural Epidural/Spinal procedure site: clean & non-tender Neuro status: Neuro function grossly intact. Cardiovascular status: normal Respiratory status: normal Airway patency: baseline Mental status: baseline Post-Op hydration status: normal Vital Signs: Last Vital Signs Temp 36.6 C 12/27/22 07:40 Pulse 81 12/27/22 07:40 Resp 16 12/27/22 07:40 BP 108/71 12/27/22 07:40 Pulse Ox 98 12/27/22 07:40 O2 Del Method Room Air 12/27/22 04:19 Pain score (VAS): 3/10 I/O: Intake & Output 12/26/22 12/27/22 12/27/22 23:59 07:59 15:59 Intake Total 600 600 Output Total 550 1425 Balance 50 -825 Post-procedural complaints: none Patient feedback: Patient satisfied with anesthetic care.
[2022-12-27] MEDS: IBUPROFEN 600 MG TABLET PO ×2 (10:54→18:37)
[2022-12-27 11:45] VITALS: BP 109/66; PULSE 97; RESP 16; TEMP 37.1; O2SAT 99
[2022-12-27 19:31] VITALS: BP 136/83; PULSE 100; RESP 16; TEMP 36.6; O2SAT 100
[2022-12-27] MEDS: CITALOPRAM HYDROBROMIDE 10 MG TABLET 30 MG PO (20:58)
[2022-12-28] MEDS: HYDROcodone/acetaminophen (*CRX) 10-325 MG TABLET 1 TAB PO ×3 (02:43→09:48)
[2022-12-28] MEDS: IBUPROFEN 600 MG TABLET PO ×2 (05:49→12:38)
[2022-12-28] MEDS: buPROPion HCL XL (24 HR) 150 MG TABCR PO (09:47)
[2022-12-28] MEDS: DOCUSATE SODIUM 100 MG CAPSULE PO (09:49)
[2022-12-28 09:50] VITALS: BP 118/81; PULSE 91; RESP 18; TEMP 36.3; O2SAT 99
[2022-12-28] MEDS: RHO(D) IMMUNE GLOBULIN 300 MCG/2 ML SYRINGE IM (09:50)
--- NOTE | 2022-12-28 10:50 | PM.OBPNVD ---
OB - PN: Subj Subjective Date/time seen: 12/28/22 10:50 Narrative: Pain OK. Tolerating diet. Would like to go home. OB - PN: Obj Data Labs 12/27/22 04:35 Labs: Laboratory Results - last 24 hr 12/28/22 04:57 Blood Type B Negative Antibody Screen Negative Screen Negative Baby's Blood Type B pos Baby's EDUAR Negative Doses of RhIg Required 1 OB - PN A/P Plan Comments: A: POD#2, doing well. P: Home to f/u 4 weeks. Exam Narrative: AVSS ABD soft, nontender, fundus firm. Incision c/d/i. EXT nontender
[2022-12-28] MEDS: MEASLES,MUMPS,RUBELLA VACCINE 0.5 ML VIAL SUB-Q (12:39)
[2022-12-30 09:01] VITALS: BP 134/83; PULSE 78; RESP 20; TEMP 36.6; O2SAT 99
== END 2022-12-28 13:19 | disposition home or self-care (01) | DRG 788 ==
LOC: ANHLDR 12-26 19:52 → ANHOB2 12-26 22:58
PROVIDERS: Admitting Provider Obstetrics & Gynecology; PCP Family Medicine; Visit Provider Obstetrics & Gynecology
PROC: 10D00Z1 Extraction of Products of Conception, Low, Open Approach (ICD-10-PCS; CPT 59514; principal; 2022-12-26 18:30)
DX: O77.0 Labor and delivery complicated by meconium in amniotic fluid (principal); O99.344 Other mental disorders complicating childbirth; Z37.0 Single live birth; Z3A.39 39 weeks gestation of pregnancy; F41.9 Anxiety disorder, unspecified; F32.A Depression, unspecified; F90.9 Attention-deficit hyperactivity disorder, unspecified type; O62.1 Secondary uterine inertia
CPT/HCPCS: 36415; 85025; 85461; 86592; 86850; 86900; 86901; 88307; 90384; 90710; A9270; J0131; J0456; J1885; J2270; J2274; J2370; J2405; J2590; J2790; J2795; J3010; J7120

== ENCOUNTER → 2023-08-30 11:46 | Outpatient (CLI) | payer BC, SELFPAY ==
--- NOTE | ~2023-08-30 | XR_ITS ---
XR thoracic spine 3V 08/30/2023 12:23 Indication: Back pain Procedure: 3 views thoracic spine Comparison: No prior studies for comparison. Findings: No fracture, subluxation or dislocation. Pedicles intact. No paraspinal soft tissue abnorma lity. Surrounding osseous structures within normal limits. Impression: 1: No significant abnormality of the thoracic spine. Reviewed, dictated and finalized at location A. EDGE BANDER Impression: 1: No significant abnormality of the thoracic spine.
--- NOTE | ~2023-08-30 | XR_ITS ---
XR lumbar spine min 4V 08/30/2023 12:23 Indication: Low back pain Procedure: 5 views lumbar spine Comparison: No prior studies for comparison. Findings: Vertebral body heights are maintained. Pedicles intact. There is mild disc narrowing at L4- 5 and L5-S1. No evidence for spondylolisthesis. There is facet hypertrophy at L4-5 and L5-S1. Impression: 1: Mild lumbar spondylosis. Reviewed, dictated and finalized at location A. [employer] Impression: 1: Mild lumbar spondylosis.
== END ==
PROVIDERS: PCP Physician Assistant; Visit Provider Physician Assistant
DX: M54.6 Pain in thoracic spine (principal); G89.29 Other chronic pain; M53.3 Sacrococcygeal disorders, not elsewhere classified; M47.896 Other spondylosis, lumbar region
CPT/HCPCS: 72072; 72110

== ENCOUNTER 2023-10-25 22:06 | Emergency (ER) | payer BC, SELFPAY ==
--- NOTE | ~2023-10-25 | CT_ITS ---
EXAMINATION: CT abdomen pelvis w con DATE: 10/25/2023 23:52 INDICATION: Right upper quadrant pain TECHNIQUE: Computed tomography (CT) of the abdomen and pelvis was performed with 100 cc Omnipaque 350 intravenous contrast. The dose-length product was 1167.76 mGy-cm. Automated exposure control and ite rative reconstruction technique were employed. COMPARISON: None. FINDINGS: There is dependent atelectasis. Heart size normal. No significant pleural or pericardial ef fusion. The liver, spleen, pancreas, adrenal glands and kidneys are unremarkable. Gallbladder is pres ent. Nonobstructive bowel pattern. No free air or free fluid. No significant vascular abnormality. No lymphadenopathy. No abnormal pelvic masses or fluid collections. IMPRESSION: 1. No acute abdominal abnormality. Reviewed, dictated and finalized at location A. BOTTOM ASSEMBLER
[2023-10-25 22:06] VITALS: BP 142/86; PULSE 114; RESP 20; TEMP 37.1; O2SAT 99
[2023-10-25 22:35] LABS: Basophils Absolute Auto 0.1 K/mm3 (0.0-0.1); Basophils Percent Auto 0.4 % (0.2-1.2); Eosinophils Absolute Auto 0.2 K/mm3 (0-0.3); Eosinophils Percent Auto 1.4 % (0-4.4); Hematocrit 47.9 % (37.0-47.0); Hemoglobin 15.4 g/dL (12.0-15.0); Immature Granulocyte Absolute 0.08 K/mm3 (0.00-0.031); Immature Granulocyte Percent A 0.6 % (0-0.5); Lymphocytes Absolute Auto 3.16 K/mm3 (0.9-3.2); Lymphocytes Percent Auto 22.9 % (18.3-44.2); Mean Corpuscular HGB Conc 32.2 g/dl (32-36); Mean Corpuscular Hemoglobin 28.5 pg (26-34); Mean Corpuscular Volume 88.5 fl (80-100); Mean Platelet Volume 10.3 fl (7.4-10.4); Monocytes Absolute Auto 1.3 K/mm3 (0.1-0.6); Monocytes Percent Auto 9.3 % (2.6-8.5); Neutrophils Absolute Auto 9.1 K/mm3 (1.3-6.7); Neutrophils Percent Auto 65.4 % (45.5-73.1); Platelet Count Result 322 k/mm3 (150-375); Red Blood Count 5.41 M/mm3 (4.2-5.4); Red Cell Distribution Width 13.5 % (11.5-14.5); White Blood Count 13.8 K/mm3 (4.5-10.0)
[2023-10-25 22:38] LABS: Appearance Urine Cloudy (Clear); Bacteria Urine None Seen /hpf; Bilirubin Urine Negative (Negative); Blood Urine Negative (Negative); Color Urine Dark Yellow (Yellow); Glucose Urine UA Negative (Negative); Ketones Urine Trace mg/dL (Negative); Leukocyte Esterase Ur 1+ LEU/UL (Negative); Nitrate Urine Negative (Negative); Non Pathogenic Casts 0-2; Protein Urine Trace mg/dL (Negative); RBC Urine 0-2 /hpf (0-2); Specific Grav Ur 1.028 (1.001-1.035); Squamous Epithelial Cell Urine None seen /hpf (Few); WBC Urine 21-50 /hpf
[2023-10-25 22:58] LABS: Alanine Aminotransferase 50 U/L (6-35); Albumin Level 4.4 g/dL (3.5-5.1); Alkaline Phosphatase 89 U/L (38-126); Anion Gap 10 mmol/L (8-16); Aspartate Amino Transferase 40 U/L (14-36); Bilirubin,Total 0.6 mg/dL (0.2-1.3); Blood Urea Nitrogen 17 mg/dL (7-17); Calcium 9.1 mg/dL (8.4-10.2); Carbon Dioxide 24 mmol/L (22-30); Chloride 103 mmol/L (98-107); Estimated CRCL calculation 98 ml/min; Estimated Glomerular Filt Rate > 60; Glucose 127 mg/dL (65-110); Lipase 55 U/L (23-300); Potassium 4.2 mmol/L (3.4-5.0); Sodium 137 mmol/L (137-145)
[2023-10-25 22:59] LABS: Add Urine Microscopic? YES
--- NOTE | 2023-10-25 23:55 | ED.GENADULT ---
HPI - General Adult General Chief complaint: Abdominal Pain Stated complaint: RUQ pain Time Seen by Provider: 10/25/23 23:09 Source: patient Mode of arrival: ambulatory Limitations: no limitations History of Present Illness HPI narrative: this is a 33-year-old biological female identified as male presenting to the ED with chief complaint of right upper quadrant pain beginning earlier this evening just prior to arrival. Patient reports nausea but denies any vomiting. Denies any diarrhea. Reports eating cereal just prior to when the pain started. Pain came out no or while sitting on the couch. Denies fevers, chills, chest pain, shortness of breath, cough, urinary complaints, flank pain. states this has happened multiple times in the past for the same but has been told everything was normal. Related Data Home Medications Medication Instructions Recorded Confirmed prenat.vits,rhea,lqg-ambe-ktdpg 1 tablet PO DAILY 11/28/22 10/20/23 duloxetine 30 mg capsule,delayed mg PO DAILY 10/20/23 10/20/23 release Allergies Allergy/AdvReac Type Severity Reaction Status Date / Time No Known Allergies Allergy Verified 10/25/23 22:06 Review of Systems Review of Systems: All systems as dictated in [facility] Past Medical History Medical History ADHD Anxiety Depression IBS (irritable bowel syndrome) Surgical History Surgical History H/O bilateral mastectomy Family History Family History Father Family history of suicide Social History Social History (Updated 10/20/23 @ 13:28 by Manisha Greenfield) Social History: Smoking packs per day: 0.5 Smoking cigarettes per day: 10.0 Years smoked: 4 Smoking pack-years: 2.00 Smoking status: Former smoker Tobacco type: e-cigarettes/vaping Second hand tobacco smoke exposure: No Smoking end date: 09/29/11 Alcohol intake: current Alcohol use details: rarely Substance use: never Substance use type: does not use Do You Feel Safe in your Home?: Yes Lack of Transportation: No Lack of Food: Never True Current Housing: I Have Housing Concerned About Future Housing: No Difficulty Paying Gas/Electric Bills: No Difficulty Paying for Meds: No Currently Unemployed: No Education: Trade/Vocational Certificate Difficulty w/ Childcare or Family Care: No Living arrangements: with family Occupation/Education: other Additional occupation/education comments: home Gender identity (if verbalized by the patient): Transgender Male Sexual Orientation (if Verbalized by the Patient): Lesbian, Nichols, or Homosexual Spiritual care concerns: No Exam Narrative: GENERAL: Well-appearing, well-nourished, and in no acute distress. HEAD: Normocephalic, atraumatic. EYES: PERRLA and EOMI. ENT: Nares clear, no rhinorrhea or epistaxis. Mucous membranes moist. Oropharynx without tonsillar hypertrophy exudate or other lesions. NECK: Supple. No adenopathy or masses. CHEST: No respiratory distress. Clear to auscultation. No wheezes rales or rhonchi HEART: Regular rate and rhythm. No murmur heard. Normal peripheral pulses. ABDOMEN: Minimal right upper quadrant tenderness present. Soft, otherwise nontender, nondistended, normal active bowel sounds. MSK: Normal range of motion. No edema. SKIN: Warm, dry, no rash. NEURO: Alert and oriented x3. No focal deficits. PSYCH: Normal mood and affect. Course Vital Signs Vital signs: Vital Signs Temperature 98.8 F 10/25/23 22:06 Pulse Rate 114 H 10/25/23 22:06 Respiratory Rate 20 10/25/23 22:06 Blood Pressure 142/86 H 10/25/23 22:06 Pulse Oximetry 99 10/25/23 22:06 Oxygen Delivery Room Air 10/25/23 22:06 Temperature 98.8 F 10/25/23 22:06 Pulse Rate 96 10/26/23 02:07 Respiratory Rate 15 10/26/23 02:0
[2023-10-26] MEDS: SODIUM CHLORIDE 0.9% IV 1,000 ML 999 ML IV CONT (01:10)
[2023-10-26] MEDS: ONDANSETRON INJ 4 MG/2 ML VIAL IV PUSH (01:11)
[2023-10-26] MEDS: MORPHINE SULFATE (*CRX) 4 MG/ML INJ IV PUSH (01:11)
[2023-10-26 02:07] VITALS: BP 128/66; PULSE 96; RESP 15; O2SAT 97
== END 2023-10-26 02:19 | disposition home or self-care (01) ==
PROVIDERS: Emergency Medicine; Emergency Provider Physician Assistant; PCP Family Medicine
DX: K20.90 Esophagitis, unspecified without bleeding (principal); K29.70 Gastritis, unspecified, without bleeding; K58.9 Irritable bowel syndrome, unspecified; F90.9 Attention-deficit hyperactivity disorder, unspecified type; F41.9 Anxiety disorder, unspecified; F32.A Depression, unspecified; Z87.891 Personal history of nicotine dependence; Z90.13 Acquired absence of bilateral breasts and nipples; Z79.890 Hormone replacement therapy
CPT/HCPCS: 36415; 74177; 80053; 81001; 83690; 85025; 87086; 96361; 96374; 96375; 99284; J2270; J2405; J7030; Q9967

== ENCOUNTER 2024-01-12 14:30 | Outpatient (RCR) | payer BC, SELFPAY ==
--- NOTE | 2023-12-03 16:54 | OPREHPOC ---
Outpatient Therapy Plan of Care This is a Multidisciplinary Plan of Care that may contain components documented by all disciplines (PT, OT, and ST.) PT Problem 1 PT Problem #1 Knowledge Deficit PT Goal 1 Goal Pt to be IND with issued HEP Target Visit 8 PT Problem 2 PT Problem #2 Pain PT Goal 1 Goal Pt to report back pain no greater than 3/10 in the last week. Target Visit 8 PT Goal 2 Goal Pt to report 75% improvement in overall symptoms. Target Visit 8 PT Problem 3 PT Problem #3 Impaired Functional Mobil PT Goal 1 Goal Pt to demonstrate a 30lb functional lift and carry without an increase in pain. Target Visit 8 PT Goal 2 Goal Pt to demonstrate good standing posture. Target Visit 8
--- NOTE | 2023-12-03 16:54 | PTOPEVAL1 ---
Assessment and note entered by Sean Lake, PT, DPT Evaluation Information Assessment Status Evaluation Diagnosis lumbar spondylosis with radiculopathy Subjective Information Pt reports a long standing history of back pain, but has increased significant in the last 4 years. He reports L sided upper back pain, centralized lumbar back pain, with intermittent R sided sciatic pain. He reports constant pain that increases with activity. Pt reports having an almost 1 year old daughter and has lots of difficulty helping her meet her needs. Pt reports being able to stand for 15-30 mins at a max. Pt enjoys hiking but has been unable d/t back pain . Reported Pain Level Pain Score 4: Self Report Assessment PT Clinical Summary George presents to therapy today for his initial evaluation with a diagnosis of lumbar spondylosis and chronic low back pain. Today he demonstrates BLE ROM and lumbar ROM that is WNL and mostly pain free. He demonstrates pelvic asymmetries when checked in supine. He has poor posture in standing with an anterior pelvic tilt, forward and rounded shoulders, increased thoracic kyphosis, and an anterior weight shift. Pain seems mostly mechanical. Skilled therapy services are indicated to address the deficits noted above, improve body mechanics, manage pain, and to return to PLOF without limitations. Plan of Care Interventions Electrical Stimulation,Gait Training,Hot Pack/Cold Pack,Mechanical Traction,Paraffin Bath,Patient/ Caregiver Educati,Therapeutic Activities, Therapeutic Exercise PT Services Indicated Yes Treatment Frequency and 2x/wk for 8 visits Duration These treatments will address the objective and functional deficits as defined above. The patient will be advanced safely and appropriately in order for the patient to progress towards his/her prior level of function. Additional exercises will be introduced and as well as a comprehensive home exercise program upon discharge, if needed, ?to ensure carryover of functional gains achieved in the clinic. This treatment plan has been reviewed and agreement upon by the patient.
--- NOTE | 2023-12-17 12:33 | PCPTNOTE ---
Patient called to cancel due to family emergency.
--- NOTE | 2023-12-18 15:52 | PCPTNOTE ---
Patient showed up to appointment then decided to cancel this date due to having a lot of personal matters going on.
--- NOTE | 2023-12-31 15:31 | PCPTNOTE ---
Patient called & cancelled scheduled appointment this date due to having a sick child. He has been rescheduled.
--- NOTE | 2024-01-02 15:22 | PCPTNOTE ---
Patient called & cancelled scheduled appointment this date due to having the flu. Has been rescheduled.
--- NOTE | 2024-01-12 15:19 | PTOPDC ---
Assessment and note entered by Sean Lake, PT, DPT Evaluation Information Assessment Status Discharge Diagnosis lumbar spondylosis with radiculopathy Subjective Information Pt states he has been really mindful of his posture. Pt states he still cannot hold his daughter for longer than 20 mins. Pt reports 85% improvement in his overall symptoms, he states he now has the tools and knowledge to treat his pain. Reported Pain Level Pain Score 0: Self Report Assessment PT Clinical Summary George presents to therapy today for his progress report following 6 visits of skilled therapy to treat his diagnosis of lumbar spondylosis and chronic low back pain. Today he demonstrates improve pain reports, improve lumbar ROM, and improve core strength. He demonstrates and reports an improved understanding of proper posture and body mechanics with functional tasks. He is progressing well towards his therapy goals and no longer requires skilled services, he will be discharged at this time.
== END 2024-01-13 10:09 | disposition home or self-care (01) ==
LOC: ANHGOSHPT 14:30
PROVIDERS: PCP Family Medicine; Visit Provider Anesthesiology Pain Medicine
DX: M25.561 Pain in right knee (principal); M47.817 Spondylosis without myelopathy or radiculopathy, lumbosacral region; M54.17 Radiculopathy, lumbosacral region; M54.6 Pain in thoracic spine; M54.9 Dorsalgia, unspecified; M79.18 Myalgia, other site; G89.29 Other chronic pain
CPT/HCPCS: 97110; 97140; 97161; 97530

== ENCOUNTER 2024-06-24 07:22 | Outpatient (CLI) | payer BC, SELFPAY ==
--- NOTE | ~2024-06-24 | XR_ITS ---
XR ankle RT min 3V Ordering provider: Guerrero Christian PA-C History: . M79.671 - Pain in right foot . Comparison: None. FINDINGS: BONES: No acute fracture or dislocation. JOINT SPACES: Normal. SOFT TISSUES: Normal. IMPRESSION: No acute osseous abnormality of the right ankle. Reviewed, dictated and finalized at location A.
== END 2024-06-24 07:23 | disposition home or self-care (01) ==
LOC: MICIMG 07:24
PROVIDERS: PCP Family Medicine; Visit Provider Physician Assistant
DX: M79.671 Pain in right foot (principal)
CPT/HCPCS: 73610

== ENCOUNTER 2024-07-28 08:20 | Emergency (ER) | payer BC, SELFPAY ==
--- NOTE | ~2024-07-28 | XR_ITS ---
EXAMINATION: XR hand LT min 3V DATE: 07/28/2024 09:57 INDICATION: Left hand raccoon bite. TECHNIQUE: 3 views of left hand were obtained. COMPARISON: None. FINDINGS: Alignment is normal. No fracture. There is mild osteoarthritis of first carpometacarpal magda nt. IMPRESSION: 1. No fracture or radiopaque foreign body. Reviewed, dictated and finalized at location B.
[2024-07-28 08:22] VITALS: BP 133/86; PULSE 99; RESP 18; TEMP 36.9; O2SAT 98
--- NOTE | 2024-07-28 09:40 | ED.ANIMALBIT ---
HPI - Animal Bite General Chief Complaint: Animal Bite Stated Complaint: BITE BY RACCOON Time Seen by Provider: 07/28/24 09:03 History of Present Illness HPI narrative: Patient is a 34-year-old male who presents to the ER after being bit by a raccoon last night. He reports his dog attacked, bit, and held onto the raccoon, so patient attempted to pull his dog off the raccoon and in the process was bit. Patient has 2 puncture wounds on the dorsal side of his left hand. He reports he is up-to-date his tetanus vaccination. Patient has no other pertinent medical history related to this ER visit. Related Data Home Medications Medication Instructions Recorded Confirmed duloxetine 30 mg capsule,delayed mg PO DAILY 10/20/23 07/15/24 release Allergies Allergy/AdvReac Type Severity Reaction Status Date / Time No Known Allergies Allergy Verified 07/28/24 08:21 Review of Systems Review of Systems: All systems reviewed & are unremarkable except as noted in HPI and below PMFSH Past Medical History Medical History ADHD Anxiety Depression IBS (irritable bowel syndrome) Surgical History Surgical History H/O bilateral mastectomy Family History Family History Father Family history of suicide Social History Social History Social History: Smoking packs per day: 0.5 Smoking cigarettes per day: 10.0 Years smoked: 4 Smoking pack-years: 2.00 Smoking status: Former smoker Tobacco type: e-cigarettes/vaping Second hand tobacco smoke exposure: No Smoking end date: 09/29/11 Alcohol intake: current Alcohol use details: rarely Substance use: never Substance use type: does not use Do You Feel Safe in your Home?: Yes Lack of Transportation: No Lack of Food: Never True Current Housing: I Have Housing Concerned About Future Housing: No Difficulty Paying Gas/Electric Bills: No Difficulty Paying for Meds: No Currently Unemployed: No Education: Trade/Vocational Certificate Difficulty w/ Childcare or Family Care: No Living arrangements: with family Occupation/Education: other Additional occupation/education comments: home Gender identity (if verbalized by the patient): Transgender Male Sexual Orientation (if Verbalized by the Patient): Lesbian, Nichols, or Homosexual Spiritual care concerns: No Exam Narrative: GENERAL: Well appearing, well-nourished, non-toxic, in no acute distress. HEAD: Normocephalic, atraumatic. NECK: Supple. No adenopathy, no masses. RESPIRATORY: Airway patent, respirations nonlabored. Clear to auscultation bilaterally, no rales, rhonchi, wheezing. CARDIOVASCULAR: Regular rate and rhythm without murmurs, rubs, or gallops. Peripheral pulses 2+ and equal bilaterally. ABDOMINAL: Soft, nontender, nondistended, no hepatosplenomegaly. Normoactive BS. MUSCULOSKELETAL: Moves all extremities. Strength/ROM intact without gross deformities. SKIN: Warm, dry, normal color. No rashes. Two small puncture wounds to the palmar side of his L hand. NEURO: A&O X3. Speech clear. Cranial nerves II-XII grossly intact. Steady gait. No ataxic movements. PSYCHIATRIC: Appropriate mood and affect. Normal interaction. Course Vital Signs Vital signs: Vital Signs Temperature 36.9 C 07/28/24 08:22 Pulse Rate 99 07/28/24 08:22 Respiratory Rate 18 07/28/24 08:22 Blood Pressure 133/86 07/28/24 08:22 Pulse Oximetry 98 07/28/24 08:22 Temperature 36.9 C 07/28/24 08:22 Pulse Rate 99 07/28/24 08:22 Respiratory Rate 18 07/28/24 08:22 Blood Pressure 133/86 07/28/24 08:22 Pulse Oximetry 98 07/28/24 08:22 MDM - Animal Bite MDM Narrative Medical decision making narrative: A left hand x-ray indicated no bone involvement. Patient has 2 puncture wounds that were both infiltrated with IVIG. The remainder of the vaccine was given to patient IM. Will discharge patient home with instructions to follow-up with Infection Control. Differential Diagnosis Differential diagnosis: Likely bite by animal and rabies contact Imaging Data Attestation: I personally reviewed and interpreted this imaging study as follows: Radiologist's impression: Impressions Hand X-Ray 07/28/24 09:58 IMPRESSION: 1. No fracture or radiopaque foreign body. Discharge Plan Discharge Clinical Impression: Bite by animal, Rabies contact Patient Disposition: Home, Self-Care Condition: Stable Instructions: Antibiotic Form, Animal Bite (ED) Additional Instructions: Please follow-up with Infection Control for rabies vaccinations on days #3, #7, #14. Return to the ER with any worsening symptoms. Follow up with your primary care provider as needed. Prescriptions: No Action duloxetine 30 mg capsule,delayed release(DR/EC) PO DAILY lisdexamfetamine [Vyvanse] 30 mg capsule 30 mg PO DAILY Qty: 30 0RF testosterone cypionate 100 mg/mL oil 50 mg IM WEEKLY Qty: 10 0RF Rx Instructions: as a single dose cyclobenzaprine 10 mg tablet 10 mg PO TID PRN (Reason: muscle spasm) Qty: 30 2RF lorazepam 1 mg tablet 1 mg PO DAILY PRN (Reason: Anxiety) Qty: 14 0RF meloxicam 15 mg tablet 15 mg PO DAILY PRN (Reason: pain) Qty: 30 2RF Follow-up/Referrals: Marshall Lynn MD [Primary Care Provider] - Time of Disposition: 11:30
[2024-07-28] MEDS: RABIES VACCINE (RABAVERT) 2.5 UNITS VIAL IM (11:08)
== END 2024-07-28 11:41 | disposition home or self-care (01) ==
PROVIDERS: Emergency Provider Registered Nurse; PCP Family Medicine
DX: S61.452A Open bite of left hand, initial encounter (principal); W55.51XA Bitten by raccoon, initial encounter; Z20.3 Contact with and (suspected) exposure to rabies; F90.9 Attention-deficit hyperactivity disorder, unspecified type; F41.8 Other specified anxiety disorders; Z87.891 Personal history of nicotine dependence; Z23 Encounter for immunization
CPT/HCPCS: 73130; 90471; 90675; 99283

== ENCOUNTER 2024-08-11 09:57 | Outpatient (RCR) | payer BC, SELFPAY ==
--- NOTE | 2024-08-04 13:53 | PC.NURSE ---
AMBULATORY TO DRAW ST[facility] FOR 3RD RABIES VACCINE. STATES HE IS FEELING GOOD . DENIES FATIGUE, BODY ACHES, NAUSEA AND DIARRHEA.
--- NOTE | 2024-08-11 10:39 | PC.NURSE ---
AMBULATORY TO DRAW STATION FOR 4TH RABIES VACCINE. WOUND IS HEALED. DENIES NAUSEA/VOMITING, BODY ACHES AND FATIGUE. GIVEN LAST OF 4 RABIES VACCINATIONS. DISCHARGED AMBULATORY WITH STEADY GAIT.
== END 2024-10-29 23:59 | disposition home or self-care (01) ==
LOC: ANHVASCINF 09:57
PROVIDERS: PCP Family Medicine; Visit Provider Registered Nurse
DX: Z20.3 Contact with and (suspected) exposure to rabies (principal); Z29.14 Encounter for prophylactic rabies immune globulin
CPT/HCPCS: 90471; 90675

== ENCOUNTER 2025-08-20 07:54 | Outpatient (CLI) | payer OTHER, SELFPAY ==
--- OUTSIDE RECORDS SUMMARY | 2024-04-29 02:45 | XMS_ITS ---
Author Organization [facility] As evocatal Address [address] [place] [address] Care Team Providers Care Animal Husbandry Technician Name Role Phone Marshall Lynn MD Primary Care Provider UnavailAntonia Dominguez Unavailable [phone] Medications Medication SIG (Take, Route, Frequency, Duration) Notes Start Date End Date Status Norethindrone 0.35 MG Tablet Oral 12/29/2023 Unknown Cyclobenzaprine HCl 10 MG Tablet Oral 12/29/2023 Unknown Aideoekdpu-UPCM-Gxoonbyr 50-325-40 MG Tablet Oral 12/29/2023 Unknown Citalopram Hydrobromide 10 MG Tablet Oral 12/29/2023 Unknown valACYclovir HCl 1 GM Tablet Oral 12/29/2023 Unknown LORazepam 1 MG Tablet Oral 12/29/2023 Unknown Trintellix 5 MG Tablet Oral 12/29/2023 Unknown Epwvsvms-Fvlidlsre-Wiyvqeke 3.5-59851-3.1 Suspension Ophthalmic 12/29/2023 Unk nown Testosterone Cypionate 200 MG/ML Solution Intramuscular 12/29/2023 Unknown Amphetamine-Dextroamphet ER 10 MG Capsule Extended Release 24 Hour Oral 12/29/2023 Unknown Ibuprofen 600 MG Tablet Oral 12/29/2023 Unknown Duxpvxksyh-MRKZ-Dgdzbqlh 50-300-40 MG Capsule Oral 12/29/2023 Unknown Escitalopram Oxalate 10 MG Tablet Oral 12/29/2023 Unknown LORazepam 0.5 MG Tablet Oral 12/29/2023 Unknown Amphetamine-Dextroamphet ER 5 MG Capsule Extended Release 24 Hour Oral 12/29/2023 Unknown Benzonatate 100 MG Capsule Oral 12/29/2023 Unknown DULoxetine HCl 30 MG Capsule Delayed Release Particles Oral 12/29/2023 Unknown Amphetamine-Dextroamphetami ne 10 MG Tablet Oral 12/29/2023 Unknown buPROPion HCl ER (XL) 150 MG Tablet Extended Release 24 Hour Oral 12/29/2023 Unknown Meloxicam 15 MG Tablet Oral 12/29/2023 Unknown Amoxicillin-Pot Clavulanate 875-125 MG Tablet Oral 12/29/2023 Unknown Gabapentin 100 MG Capsule Oral 12/29/2023 Unknown Social History Sex Assigned At : Social History Observation Description Sex Assigned At Male [facility]ters [facility] [address] [address] 04/29/2024 Antonia Lemos Plan Of Treatment No Information Progress Notes * RAMSES ARENASDOB:1990 ( 35 yo M)Acc No.[id number]:04/29/2024 Patient: RAMSES ADKINS Provider: KESHAV CALVIN :1990 A ge:33 Y S ex:Male Date:04/29/2024 Address:[address] [place], [place] [id number] Pcp:Marshall Lynn MD Subjective: * Chief Complaints: * Medications: U nknownBenzonatate 100 MG Capsule Oral DULoxetine HCl 30 MG Capsule Delayed Release Particles Oral Amphetamine-Dextroamphetamine 10 MG Tablet Oral Ibuprofen 600 MG Tablet Oral Xmetpuhhgq-BZQM-Tkvqkwfr 50-300-40 MG Capsule Oral Escitalopram Oxalate 10 MG Tablet Oral LORazepam 0.5 MG Tablet Oral Amphetamine-Dextroamphet ER 5 MG Capsule Extended Release 24 Hour Oral Awzotmat-Dobdihbtj-Xqwhzwdx 3.5-15214-6.1 Suspension Ophthalmic Testosterone Cypionate 200 MG/ML Solution Intramuscular Amphetamine-Dextroamphet ER 10 MG Capsule Extended Release 24 Hour Oral LORazepam 1 MG Tablet Oral Trintellix 5 MG Tablet Oral Norethindrone 0.35 MG Tablet Oral Cyclobenzaprine HCl 10 MG Tablet Oral Ccngvemprv-KXKG-Sjvrmvrp 50-325-40 MG Tablet Oral Citalopram Hydrobromide 10 MG Tablet Oral valACYclovir HCl 1 GM Tablet Oral Amoxicillin-Pot Clavulanate 875-125 MG Tablet Oral Gabapentin 100 MG Capsule Oral buPROPion HCl ER (XL) 150 MG Tablet Extended Release 24 Hour Oral Meloxicam 15 MG Tablet Oral Unknown Benzonatate 100 MG Capsule Oral Unknown DULoxetine HCl 30 MG Capsule Delayed Release Particles Oral Unknown Amphetamine-Dextroamphetamine 10 MG Tablet Oral Unknown Ibuprofen 600 MG Tablet Oral Unknown Gwgiizotnk-HOZY-Bescwnlp 50-300-40 MG Capsule Oral Unknown Escitalopram Oxalate 10 MG Tablet Oral Unknown LORazepam 0.5 MG Tablet Oral Unknown Amphetamine-Dextroamphet ER 5 MG Capsule Extended Release 24 Hour Oral Unknown Leuvbmzx-Wthtjelwh-Dsedrnnm 3.5-97011-8.1 Suspension Ophthalmic Unknown Testosterone Cypionate 200 MG/ML Solution Intramuscular Unknown Amphetamine-Dextroamphet ER 10 MG Capsule Extended Release 24 Hour Oral Unknown LORazepam 1 MG Tablet Oral Unknown Trintellix 5 MG Tablet Oral Unknown Norethindrone 0.35 MG Tablet Oral Unknown Cyclobenzaprine HCl 10 MG Tablet Oral Unknown Hzswzhpdej-ZRXL-Sbfiiqsb 50-325-40 MG Tablet Oral Unknown Citalopram Hydrobromide 10 MG Tablet Oral Unknown valACYclovir HCl 1 GM Tablet Oral Unknown Amoxicillin-Pot Clavulanate 875-125 MG Tablet Oral Unknown Gabapentin 100 MG Capsule Oral Unknown buPROPion HCl ER (XL) 150 MG Tablet Extended Release 24 Hour Oral Unknown Meloxicam 15 MG Tablet Oral Billing Information: * Procedure Codes: * Electronic signature of KESHAV Anne on 08/20/2025 at 08:05 AM MIRROR INSPECTOR Sign off status: Pending * Provider: KESHAV CALVIN Date: 0 04/29/2024 Generated for Mike rees/Zackary/Rubin on: 10/20/2024 08:05 AM MIRROR INSPECTOR
--- OUTSIDE RECORDS SUMMARY | 2025-08-20 08:05 | XMS_ITS | Patient Health Record ---
Author Organization [facility] Address [address] [place] [address] Care Team Providers Care Box Shook Patcher Name Role Phone Marshall Lynn MD Primary Care Provider Antonia Minor Unavailable [phone] Allergies No Known Allergies Reason For Referral No Information Medications Medication SIG (Take, Route, Frequency, Duration) Notes Start Date End Date Status Testosterone Cypionate 200 MG/ML Solution Intramuscular weekly 12/29/2023 Not-Taki ng Norethindrone 0.35 MG Tablet Oral 12/29/2023 Active Cyclobenzaprine HCl 10 MG Tablet Oral 12/29/2023 Active Meloxicam 15 MG Tablet Oral 12/29/2023 Active Lisdexamfetamine Dimesylate 30 MG Capsule 1 capsule in the morning Orally Once a day PCP Active LORazepam 0.5 MG Tablet Oral PCP 12/29/2023 Active DULoxetine HCl 60 MG Capsule Delayed Release Particles Take 1 capsule by mouth once daily; Duration: 90 Active DULoxetine HCl 60 MG Capsule Delayed Release Particles 1 cap Oral Once a day; Duration: 90 days 06/22/2025 Active DULoxetine HCl 30 MG Capsule Delayed Release Particles 1 capsule Orally Once a day; Duration: 90 days total daily dose 90mg 06/22/2025 Active Social History Tobacco Use: Social History Observation Description Date Details (start date - stop date) Former Smoker 04/02/2012 - 01/01/2015 Sex Assigned At : Social History Observation Description Sex Assigned At Male Social History Miscellaneous: Social Info Question Answer Notes Advance Care Planning Are you your own decision-maker Yes Do you have Power of Slubber Frame Changer for Health or Medi rhea? No Tobacco Use: Social Info Question Answer Notes Tobacco Control (Standard) Tobacco use: Former smoker When did you start smoking? 04/02/2012 When did you stop smoking? 01/01/2015 How long has it been since you last smoked? 5-10 years Additional Details Category Social Info Options Details Migrated Social History Migrated Social History Alcohol Intake: Occasional 06/26/2023,Tobacco Years: Former smoker 06/26/2023 Problems Problem Type SNOMED Code ICD Code Onset Dates Problem Status W/U Status Risk Notes Problem Mild recurrent major depression (55446546) Major depressive disorder, recurrent, mild (F33.0) Active confirmed Problem Generalized anxiety disorder (68812634) Generalized anxiety disorder (F41.1) Active confirmed Problem Attention deficit hyperactivity disorder, combined type (28804500) Attention-deficit hyperactivity disorder, combined type (F90.2) Active confirmed Vital Signs Heart Rate 112 /min 06/22/2025 Height-cm 160.02 cm 06/22/2025 Blood pressure diastolic 79 mm Hg 06/22/2025 Weight-kg 80.74 kg 06/22/2025 Height 63.00 in 06/22/2025 Blood pressure systolic 114 mm Hg 06/22/2025 Weight 178 lbs 06/22/2025 BMI 31.53 kg/m2 06/22/2025 Encounters Encounter Location Date Provider Diagnosis [facility] [place] [place] [employer] [address] [address] 09/06/2024 Antonia Lemos Major depressive disorder, recurrent, mild F33.0 ; Generalized anxiety disorder F41.1 and Attention-deficit hyperactivity disorder, combined type F90.2 [facility] [address] [address] 03/07/2025 Antonia Lemos [facility] [address] [address] 06/22/2025 Antonia Lemos Major depressive disorder, recurrent, mild F33.0 ; Generalized anxiety disorder F41.1 and Attention-deficit hyperactivity disorder, combined type F90.2 [facility] [address] [address] 07/22/2025 Antonia Lemos Assessments Encounter Date Diagnosis (ICD Code) Assessment Notes Treatment Notes Treatment Clinical Notes Section Notes 09/06/2024 Major depressive disorder, recurrent, mild (ICD-10 - F33.0) 06/22/2025 Major depressive disorder, recurrent, mild (ICD-10 - F33.0) SSRI/SNRI side effects discussed including but not limited to, gastric upset, nausea, vomiting, diarrhea and/or constipation, weight changes, sexual side effects including loss of libido, increased suicidal thoughts/behaviors in children and young adults, and serotonin syndrome. 06/22/2025 Generalized anxiety disorder (ICD-10 - F41.1) 09/06/2024 Generalized anxiety disorder (ICD-10 - F41.1) 09/06/2024 Attention-defici t hyperactivity disorder, combined type (ICD-10 - F90.2) Lisdexamfetamine 30mg daily per PCP 06/22/2025 Attention-defici t hyperactivity disorder, combined type (ICD-10 - F90.2) Lisdexamfetamine 30mg daily per PCP 09/06/2024 Other Overall stable, cont current medications. Refill sent in. Discussed if panic attacks continue to contact office and we can increase duloxetine. Patient educated on all medications including potential benefits, side effects, risks. Educated on proper dosing schedule and importance of compliance. Stimulant per PCP -Assessment and treatment plan reviewed with patient. -Compliance with treatment plan importance discussed. -Discussed the risks/benefits of this medication -Discussed medication side effects. -Contact office if symptoms worsen. -Discussed that it can take up to 6-8 weeks to see full therapeutic effects of psychotropic medications. -Crisis prevention hotline 988. 06/22/2025 Other Restart duloxetine 60mg daily for one week, then increase to 90mg daily for mood, anxiety Patient educated on all medications including potential benefits, side effects, risks. Educated on proper dosing schedule and importance of compliance. -Assessment and treatment plan reviewed with patient. -Compliance with treatment plan importance discussed. -Discussed the risks/benefits of this medication -Discussed medication side effects. -Contact office if symptoms worsen. -Discussed that it can take up to 6-8 weeks to see full therapeutic effects of psychotropic medications. -Crisis prevention hotline 988. Plan Of Treatment No Information Insurance Providers Payer Name Payer Address Payer Phone Subscriber Number Group Number Insured Name Patient Relationship to Insured Coverage Start Date Coverage End Date [employer] [address] [place] [address] [id number] [employer] Self - patient is the insured Medical (General) History Medical History History ICD Code Problems: Attention deficit hyperactivit y disorder, combined type Generalized anxiety disorder Mild recurrent major depression , Surgical History Surgery Date(Month/Year) Other 04/19/2019
--- OUTSIDE RECORDS SUMMARY | 2025-08-20 08:05 | XMS_ITS ---
Author Organization Unknown ENCOUNTERS Encounter Performer Location Date Diagnosis Diagnosis Status Outpatient [facility] [address] [place] [address] [id number] [place] Emergency [facility] [address] [place] [address] [id number] [place] Pre Admit [facility] [address] [place] [address] [id number] Outpatient [facility] [address] [place] [address] [id number] [place] [facility] [address] [place] [address] [id number] [place] Pre Admit [facility] [address] [place] [address] [id number] Inpatient [facility] [address] [place] [address] [id number] [place] Observation [facility] [address] [place] [address] [id number] [place] Observ[place] [facility] [address] [place] [address] [id number] [place] Outpatient [facility] [address] [place] [address] [id number] [place] Emergency [facility] [address] [place] [address] [id number] [place] Outpatient [facility] [address] [place] [address] [id number] [place] Out[place] [facility] [address] [place] [address] [id number] [place] *Note: Encounters from your own facility or health system may be excluded. Allergies, Adverse Reactions, Alerts Allergen Type Severity Identification Date Medications Name Date Quantity Days Supplied [facility] Number
--- OUTSIDE RECORDS SUMMARY | 2025-08-20 08:05 | XMS_ITS | Clinical Summary ---
Author Organization [facility] Address [address] [address] 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
== END 2025-08-20 07:55 | disposition home or self-care (01) ==
LOC: ANHLAB 08:03
PROVIDERS: PCP Family Medicine; Visit Provider Nurse Practitioner Obstetrics & Gynecology
DX: Z87.59 Personal history of other complications of pregnancy, childbirth and the puerperium (principal)
CPT/HCPCS: 36415; 84702

== ENCOUNTER 2025-08-23 09:53 | Outpatient (CLI) | payer OTHER, SELFPAY ==
--- OUTSIDE RECORDS SUMMARY | 2024-04-29 02:45 | XMS_ITS ---
Author Organization [facility] As [employer] Address [address] [place] [address] Care Team Providers Care Cigarette Packing Machine Operator Name Role Phone Marshall Lynn MD Primary Care Provider UnavailAntonia Dominguez Unavailable [phone] Medications Medication SIG (Take, Route, Frequency, Duration) Notes Start Date End Date Status Norethindrone 0.35 MG Tablet Oral 12/29/2023 Unknown Cyclobenzaprine HCl 10 MG Tablet Oral 12/29/2023 Unknown Snuetxlonp-UBRB-Yvkstecd 50-325-40 MG Tablet Oral 12/29/2023 Unknown Citalopram Hydrobromide 10 MG Tablet Oral 12/29/2023 Unknown valACYclovir HCl 1 GM Tablet Oral 12/29/2023 Unknown LORazepam 1 MG Tablet Oral 12/29/2023 Unknown Trintellix 5 MG Tablet Oral 12/29/2023 Unknown Cegjorml-Qscigyxml-Bqlfahxk 3.5-30987-4.1 Suspension Ophthalmic 12/29/2023 Unk nown Testosterone Cypionate 200 MG/ML Solution Intramuscular 12/29/2023 Unknown Amphetamine-Dextroamphet ER 10 MG Capsule Extended Release 24 Hour Oral 12/29/2023 Unknown Ibuprofen 600 MG Tablet Oral 12/29/2023 Unknown Eitplivbii-XWBZ-Hmnitggi 50-300-40 MG Capsule Oral 12/29/2023 Unknown Escitalopram [...] Male Encounters Encounter Location Date [facility] [address] [address] 04/29/2024 Antonia Lemos Plan Of Treatment No Information Progress Notes * RAMSES ARENASDOB:1990 ( 35 yo M)Acc No.[id number]:04/29/2024 Patient: RAMSES ADKINS Provider: KESHAV CALVIN :1990 A ge:33 Y S ex:Male Date:04/29/2024 Address:[address] [place], [place] [id number] Pcp:Marshall Lynn MD Subjective: * Chief Complaints: * Medications: U nknownBenzonatate 100 MG Capsule Oral DULoxetine HCl 30 MG Capsule Delayed Release Particles Oral Amphetamine-Dextroamphetamine 10 MG Tablet Oral Ibuprofen 600 MG Tablet Oral Fpxaxjpqwr-SAEX-Rtshyxef 50-300-40 MG Capsule Oral Escitalopram Oxalate 10 MG Tablet Oral LORazepam 0.5 MG Tablet Oral Amphetamine-Dextroamphet ER 5 MG Capsule Extended Release 24 Hour Oral Jqoindsc-Avmflizsr-Udmxdkvm 3.5-39043-7.1 Suspension Ophthalmic Testosterone Cypionate 200 MG/ML Solution Intramuscular Amphetamine-Dextroamphet ER 10 MG Capsule Extended Release 24 Hour Oral LORazepam 1 MG Tablet Oral Trintellix 5 MG Tablet Oral Norethindrone 0.35 MG Tablet Oral Cyclobenzaprine HCl 10 MG Tablet Oral Wcbysoavpw-VRFB-Vfmhhowp 50-325-40 MG Tablet Oral Citalopram Hydrobromide 10 [...] Unknown Ibuprofen 600 MG Tablet Oral Unknown Asanonxdbu-UNIA-Dkxqylss 50-300-40 MG Capsule Oral Unknown Escitalopram Oxalate 10 MG Tablet Oral Unknown LORazepam 0.5 MG Tablet Oral Unknown Amphetamine-Dextroamphet ER 5 MG Capsule Extended Release 24 Hour Oral Unknown Cdfeksfk-Azdngcfpw-Lgrqvnsx 3.5-47807-5.1 Suspension Ophthalmic Unknown Testosterone Cypionate 200 MG/ML Solution Intramuscular Unknown Amphetamine-Dextroamphet ER 10 MG Capsule Extended Release 24 Hour Oral Unknown LORazepam 1 MG Tablet Oral Unknown Trintellix 5 MG Tablet Oral Unknown Norethindrone 0.35 MG Tablet Oral Unknown Cyclobenzaprine HCl 10 MG Tablet Oral Unknown Nmatdyabrx-CSKB-Ngzwhehq 50-325-40 MG Tablet Oral Unknown Citalopram Hydrobromide 10 MG Tablet Oral Unknown valACYclovir HCl 1 GM Tablet Oral Unknown Amoxicillin-Pot Clavulanate 875-125 MG Tablet Oral Unknown Gabapentin 100 MG Capsule Oral Unknown buPROPion HCl ER (XL) 150 MG Tablet Extended Release 24 Hour Oral Unknown Meloxicam 15 MG Tablet Oral Billing Information: * Procedure Codes: * Electronic signature of KESHAV Anne on 08/23/2025 at 10:53 AM FILM PROCESSING UTILITY WORKER Sign off status: Pending * Provider: KESHAV CALVIN Date: 0 04/29/2024 Generated for Mike rees/Zackary/Rubin on: 10/23/2024 10:53 AM FILM PROCESSING UTILITY WORKER
--- OUTSIDE RECORDS SUMMARY | 2025-08-23 10:53 | XMS_ITS | Clinical Summary ---
Author Organization [facility] Address [address] [facility] [place] [address] Care Team Providers Care Patternmaker Sample Name Role Phone Unavailable Primary Care Provider Unavailabl e Encounters Date Type Department Care Team Description 2025 External Device Data STL ABSTRACTION Provider, Abstract from Last 3 Months Social History Tobacco Use Types Packs/Day Years Used Date Smoking Tobacco: Never Assessed Comments Unknown Sex and Gender Information Value Date Recorded Sex Assigned at Not on file Legal 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
--- OUTSIDE RECORDS SUMMARY | 2025-08-23 10:53 | XMS_ITS ---
Author Organization Unknown ENCOUNTERS Encounter Performer Location Date Diagnosis Diagnosis Status Outpatient [facility] [address] [place] [address] [id number] Outpatient [facility] [address] [place] [address] [id number] [place] Out[place] [facility] [address] [place] [address] [id number] [place] Emergency [facility] [address] [place] [address] [id number] [place] Pre Admit [facility] [address] [place] [address] [id number] Outpatient [facility] [address] [place] [address] [id number] [place] [facility] [address] [place] [address] [id number] [place] Pre Admit [facility] [address] [place] [address] [id number] Inpatient [facility] [address] [place] [address] [id number] [place] Observ[place] [facility] [address] [place] [address] [id number] [place] Observ[place] [facility] [address] [place] [address] [id number] [place] [facility] [address] [place] [address] [id number] [place] Emergency [facility]by [facility]ont [facility] [address] [place] [address] [id number] [place] Outpatient [facility] [address] [place] [address] [id number] [place] Out[place] [facility] [address] [place] [address] [id number] [facility] *Note: Encounters from your own facility or health system may be excluded. Allergies, Adverse Reactions, Alerts Allergen Type Severity Identification Date Medications Name Date Quantity Days Supplied [facility] Number
--- OUTSIDE RECORDS SUMMARY | 2025-08-23 10:53 | XMS_ITS | Patient Health Record ---
Author Organization [facility] [employer] [facility] Address [address] [place] [address] Care Team Providers Care Head Men'S Golf Coach Name Role Phone Marshall Lynn MD Primary Care Provider Antonia Minor Unavailable [phone] Allergies No Known Allergies Reason For Referral [...] decision-maker Yes Do you have Power of Juvenile Justice Specialist for Health or Medi rhea? No Tobacco [...] Risk Notes Problem Mild recurrent major depression (54580844) Major depressive disorder, recurrent, mild (F33.0) Active confirmed Problem Generalized anxiety disorder (71176196) Generalized anxiety disorder (F41.1) Active confirmed Problem Attention deficit hyperactivity disorder, combined type (37763662) Attention-deficit hyperactivity disorder, combined type (F90.2) Active confirmed Vital Signs Heart Rate 112 /min 06/22/2025 Height-cm 160.02 cm 06/22/2025 Blood pressure diastolic 79 mm Hg 06/22/2025 Weight-kg 80.74 kg 06/22/2025 Height 63.00 in 06/22/2025 Blood pressure systolic 114 mm Hg 06/22/2025 Weight 178 lbs 06/22/2025 BMI 31.53 kg/m2 06/22/2025 Encounters Encounter Location Date Provider Diagnosis [facility] [employer] [address] [address] 09/06/2024 Antonia Lemos Major depressive disorder, recurrent, mild F33.0 ; Generalized anxiety disorder F41.1 and Attention-deficit hyperactivity disorder, combined type F90.2 [facility] [employer] [address] 03/07/2025 Antonia Lemos [facility] [address] [address] 06/22/2025 Antonia Lemos Major depressive disorder, recurrent, mild F33.0 ; Generalized anxiety disorder F41.1 and Attention-deficit hyperactivity disorder, combined type F90.2 [facility] [address] [address] 07/22/2025 Antonia Lemos Assessments Encounter Date Diagnosis [...] Coverage End Date [employer] [address] [place] [address] [id number] 1A [employer] Self - patient is the insured Medical (General) History Medical History History ICD Code Problems: Attention deficit hyperactivit y disorder, combined type Generalized anxiety disorder Mild recurrent major depression , Surgical History Surgery Date(Month/Year) Other 04/19/2019
== END 2025-08-23 09:54 | disposition home or self-care (01) ==
LOC: ANHLAB 09:55
PROVIDERS: PCP Family Medicine; Visit Provider Nurse Practitioner Obstetrics & Gynecology
DX: Z87.59 Personal history of other complications of pregnancy, childbirth and the puerperium (principal)
CPT/HCPCS: 36415; 84144; 84702

== ENCOUNTER 2025-08-31 13:43 | Outpatient (CLI) | payer OTHER, SELFPAY ==
--- OUTSIDE RECORDS SUMMARY | 2025-08-31 14:59 | XMS_ITS | Clinical Summary ---
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
== END 2025-08-31 13:44 | disposition home or self-care (01) ==
LOC: ANHLAB 13:44
PROVIDERS: PCP Family Medicine; Visit Provider Obstetrics & Gynecology
DX: O20.0 Threatened abortion (principal); Z3A.00 Weeks of gestation of pregnancy not specified
CPT/HCPCS: 36415; 84702

== ENCOUNTER 2025-09-06 02:41 | Day surgery (SDC) | payer OTHER, SELFPAY ==
[2025-09-05 15:15] VITALS: BMI 32.2
--- NOTE | 2025-09-05 15:23 | PC.NURSE ---
[facility] has started construction of its new state of the art ER which will open Spring 2026. With this, we anticipate parking may be a challenge for some our surgical patients and families. Parking spaces are limited but are available for all Surgical, obstetrics, and ER patients sharing this lot. If you arrive and find you are having a hard time finding a parking space, please note that we understand the challenges, please drive around the hospital and park near Hospital Entrance 1. When you enter this entrance, you can ask a volunteer to direct or take you back to the surgical waiting area to check in. We appreciate everyone?s understanding of these expected challenges while we build for your future. Report to the Outpatient Waiting Room, entrance under the green pavilion located off [address], at time _1230_ on date 09/06/25__. Planned Procedure Time: __1430_.? Time changes happen often and if your time is changed the preop area will call you the afternoon before. - You and your visitor will be asked to self-screen and do not enter if you have any COVID symptoms. Please call surgeon if you need to reschedule. - A mask is optional within the hospital at this time. Patients may have clear liquids (water, carbonated beverages, clear teas, apple juice) until 3 hours prior to surgery with a maximum of 20 ounces. - No food from midnight until time of surgery and no smoking, or chewing tobacco (or any form of nicotine). No chewing gum, candy or mints. . Take only the following medications with a SIP of water on the morning of surgery: vyvanse,lorazepam if needed DO NOT STOP ANY OF YOUR OTHER PRESCRIPTION MEDICATIONS PRIOR TO SURGERY EXCEPT THE FOLLOWING Hold all vitamins and supplements for 3 days per anesthesiologist. Medications to discontinue per physician Date to take last dose Please no make-up, nail tuvaluan, hairspray, perfume, deodorant, or body powder the day of surgery.? No jewelry (including any body piercings) or valuables the day of surgery, leave them at home.? Please take a shower or bath the night before, or the morning of, surgery with an antibacterial soap.? Wear comfortable, loose fitting clothing.? Children are encouraged to wear pajamas. - Jewelry must be removed prior to entering the operating room.? Rings and piercings that are not removed may be cut off. - The hospital will not accept responsibility for valuables.? - Please leave all valuables, including medications, at home the day of surgery. If you are going home after surgery, a licensed bull driver must drive you home.? - NO public transportation without another adult if you receive anesthesia. - We recommend that an adult stay with you for 24 hours following discharge. - We also recommend that you do not drive, make important decision, drink alcoholic beverages, or take any drugs that were not prescribed by your health care provider for at least 24 hours after your discharge time. For Pediatric surgeries, we recommend two adults accompany the child home. Follow any additional instructions given to you from your surgeon. Telephone instructions given to _patient__and asked if any additional questions and then verbalized understanding. Patient advised to call surgeon office or pre surgery nurse liaison [phone] if any additional questions.
[2025-09-06 12:35] VITALS: BP 125/70; PULSE 110; RESP 18; TEMP 36.8; O2SAT 99
[2025-09-06] MEDS: ACETAMINOPHEN 500 MG TABLET 1000 MG PO (13:00)
[2025-09-06] MEDS: LACTATED RINGERS 1,000 ML 30 ML IV CONT (13:10)
--- NOTE | 2025-09-06 13:18 | WPDANESEPPF ---
Anes - Initial Pre Proc Eval Procedure: Operation Date: 09/06/25 14:30 Proposed Procedures p Suction Dilation and Curettage - Donavan Reeves MD Date/Time: 09/06/25 13:18 Surgeon: Donavan Reeves MD Pre Op Diagnosis: missed Ab Patient Data Age: 35 Gender: F Height: 1.57 m Weight: 80 kg Allergies Allergy/AdvReac Type Severity Reaction Status Date / Time No Known Allergies Allergy Verified 09/05/25 15:12 Home Medications ?Medication ?Instructions ?Recorded ?Confirmed ?Type duloxetine 30 mg capsule,delayed 90 mg PO HS 10/20/23 09/05/25 History release meloxicam 15 mg tablet 15 mg PO DAILY PRN pain #30 tabs 01/10/25 09/05/25 Rx triamcinolone acetonide 0.1 % 1 applic topical BID PRN rash #60 02/10/25 09/05/25 Rx lotion mL cyclobenzaprine 10 mg tablet See Rx Instructions .Route 08/16/25 09/05/25 Rx .COMPLEX #30 tabs lisdexamfetamine 30 mg capsule 30 mg PO DAILY #30 caps 09/02/25 09/05/25 Rx (Vyvanse) lorazepam 1 mg tablet 1 mg PO DAILY PRN Anxiety #14 tabs 09/02/25 09/05/25 Rx cetirizine 10 mg tablet (24Hour 10 mg PO DAILY 09/05/25 09/05/25 History Allergy) Patient hx anesthesia problems: none Family hx anesthesia problems: none Results Review: All pre-operative results and documents have been reviewed as part of the pre-operative evaluation. [facility] Past Medical History Medical History IBS (irritable bowel syndrome) Depression Anxiety ADHD Surgical History Surgical History H/O bilateral mastectomy Family History Family History Father Family history of suicide Social History Social History Social History: Smoking packs per day: 0.5 Smoking cigarettes per day: 10.0 Years smoked: 5 Smoking pack-years: 2.50 Smoking status: Former smoker Tobacco type: cigarettes Second hand tobacco smoke exposure: No Smoking end date: 09/29/11 Additional smoking assessment comments: QUIT 2013 Alcohol intake: current Alcohol use details: ONCE PER MONTH Substance use: never Substance use type: does not use Lack of Transportation: No Lack of Food: Never True Current Housing: I Have Housing Concerned About Future Housing: No Difficulty Paying Gas/Electric Bills: No Difficulty Paying for Meds: No Currently Unemployed: No Education: Trade/Vocational Certificate Difficulty w/ Childcare or Family Care: No Living arrangements: with family Occupation/Education: other Additional occupation/education comments: home Gender identity (if verbalized by the patient): Male Sexual Orientation (if Verbalized by the Patient): Lesbian, Nichols, or Homosexual Spiritual care concerns: No Anes - Eval Final PreProcedure Day of Procedure 09/06/25 13:18 Patient weight: obese Heart: regular rate and rhythm Lungs: clear to auscultation Airway: Mallampati scale class 1 Neurological: alert and oriented Last oral intake: >/= 8 hours ASA classification: II Emergent: no Anesthetic plan: proceed Anesthesia type and monitoring: general GIVS and standard monitoring Results Review: All pre-operative results and documents have been reviewed as part of the pre-operative evaluation. Informed Consent: The patient's anesthetic plan and its attendant risks and benefits were discussed with the patient/family/POA. Questions were solicited and answers provided to the satisfaction of the patient/family/POA.
--- NOTE | 2025-09-06 14:28 | PM.IMHP2 ---
H&P: HPI History of Present Illness Date/Time: 09/06/25 14:28 Chief Complaint: Miscarriage Narrative: 35 y/o with LMP 07/11/25. Ultrasound exam shows an intrauterine gestational sac but no pole, despite a bHCG of 31,922. I discussed these findings with the patient, who identifies as male, and his . We reviewed the quantitative hCG levels preceding today's exam. He has no vaginal bleeding. He has had some cramping. Of note, blood type is B negative. He is interested in surgical management with dilation and suction curettage. Review of Systems Review of Systems: All systems reviewed & are unremarkable except as noted in HPI and below PMFSH Past Medical History Medical History IBS (irritable bowel syndrome) Depression Anxiety ADHD Surgical History Surgical History H/O bilateral mastectomy Family History Family History Father Family history of suicide Social History Social History Social History: Smoking packs per day: 0.5 Smoking cigarettes per day: 10.0 Years smoked: 5 Smoking pack-years: 2.50 Smoking status: Former smoker Tobacco type: cigarettes Second hand tobacco smoke exposure: No Smoking end date: 09/29/11 Additional smoking assessment comments: QUIT 2013 Alcohol intake: current Alcohol use details: ONCE PER MONTH Substance use: never Substance use type: does not use Lack of Transportation: No Lack of Food: Never True Current Housing: I Have Housing Concerned About Future Housing: No Difficulty Paying Gas/Electric Bills: No Difficulty Paying for Meds: No Currently Unemployed: No Education: Trade/Vocational Certificate Difficulty w/ Childcare or Family Care: No Living arrangements: with family Occupation/Education: other Additional occupation/education comments: home Gender identity (if verbalized by the patient): Male Sexual Orientation (if Verbalized by the Patient): Lesbian, Nichols, or Homosexual Spiritual care concerns: No Meds Home Medications and Allergies Home Medications ?Medication ?Instructions ?Recorded ?Confirmed ?Type duloxetine 30 mg capsule,delayed 90 mg PO HS 10/20/23 09/06/25 History release meloxicam 15 mg tablet 15 mg PO DAILY PRN pain #30 tabs 01/10/25 09/05/25 Rx triamcinolone acetonide 0.1 % 1 applic topical BID PRN rash #60 02/10/25 09/05/25 Rx lotion mL cyclobenzaprine 10 mg tablet See Rx Instructions .Route 08/16/25 09/05/25 Rx .COMPLEX #30 tabs lisdexamfetamine 30 mg capsule 30 mg PO DAILY #30 caps 09/02/25 09/06/25 Rx (Vyvanse) lorazepam 1 mg tablet 1 mg PO DAILY PRN Anxiety #14 tabs 09/02/25 09/06/25 Rx cetirizine 10 mg tablet (24Hour 10 mg PO DAILY 09/05/25 09/06/25 History Allergy) Allergies Allergy/AdvReac Type Severity Reaction Status Date / Time No Known Allergies Allergy Verified 09/06/25 13:34 Vital Signs Vital Signs - 24 hr 09/06/25 12:35 Temperature 98.2 F Pulse Rate 110 H Respiratory Rate 18 Blood Pressure 125/7 L Pulse Oximetry 99 Oxygen Delivery Room Air Exam Const: Orientation/consciousness: patient oriented x3 Other: Well-developed, well-nourished female in no acute distress. Neck: Thyroid: thyroid normal Lymphatic: no lymphadenopathy noted (in neck, axilla or inguinal nodes) Resp: Effort & Inspection: normal respiratory effort Auscultation: clear to auscultation bilaterally Cardio: Rate: regular rate Rhythm: regular rhythm Heart sounds: S1 normal heart sound present and S2 normal heart sound present GI: Other: ABD: Soft, nontender, nondistended. No guarding or rebound tenderness. No hepatosplenomegaly. : General: Yes no CVA tenderness Other: External genitalia: normal female hair distribution, without lesion. Urethral meatus: no lesion, non prolapsed. Bladder: no mass, nontender Vagina: well-estrogenized, without lesion or discharge. No cystocele or rectocele. Cervix: no lesion or discharge. Uterus: small, anteverted, freely mobile, nontender Adnexa: no mass or tenderness. Anus/perineum: no lesions, nontender Back/Spine/Pelvis: Back: no CVA tenderness Skin: General skin exam: normal color and no rashes or lesions noted Neuro: General: patient oriented x3 Extrem: Other: Extremities: nontender with no edema Psych: Mental Status: mental status grossly normal Affect: normal affect Assessment and Plan Assessment and plan (1) Missed ab: Code(s): O02.1 - Missed Status: Acute Assessment and Plan: A: Missed SAB. P: We reviewed medical as well as surgical management approaches, and he desires the latter. Specifically, I have offered dilation and suction curettage. He understands risks of surgery to include risks of anesthesia, risks of pain, infection, bleeding, blood products, thromboembolic phenomena and damage to adjacent structures such as bowel, bladder, ureters, blood vessels and nerves. He understands all these risks and elects to proceed with surgery. He will need Rhogam as well.
--- NOTE | 2025-09-06 14:40 | WPDHPUPDATE1 ---
History and Physical Update Update Date/Time: 09/06/25 14:40 History and Physical has been reviewed, including an updated exam of the patient. There are NO changes in the patient's condition. Risks, benefits, and alternatives have been discussed and questions answered. Patient agrees to proceed with procedure.
--- NOTE | 2025-09-06 14:41 | WPDHPUPDATE1 ---
History and Physical Update Update Date/Time: 09/06/25 14:41 History and Physical has been reviewed, including an updated exam of the patient. There are NO changes in the patient's condition. Risks, benefits, and alternatives have been discussed and questions answered. Patient agrees to proceed with procedure.
[2025-09-06] MEDS: KETOROLAC 30 MG/ML VIAL (*BKC) IV PUSH (14:53)
[2025-09-06] MEDS: LIDOCAINE 1% LOCAL INJ 10 ML VIAL INFILTRATE (14:54)
--- NOTE | 2025-09-06 14:57 | S_PTH ---
PATIENT: George Ramsey LOC: [facility] U#:[id number] AGE/SX: 35/F ROOM: RE09/06/[address]: Donavan Reeves MD : 1990 BED: DIS: 09/06/2025 SPEC #: [id number] RECD: 09/07/25 08:33 STATUS: DIAMOND REQ #: [id number] MCKAY: 09/06/25 14:[address]: Donavan Reeves DEPT: [facility] Surgical RECD BY: Genevieve Richards MLT, ([facility]) ENTERED: 09/07/25 08:33 SP TYPE: Surgical OTHR DR: Marshall Lynn MD Tissues: A - Products of Conception Procedures: Hematoxylin and Eosin Stain Gross and Microscopic Level 4
--- NOTE | 2025-09-06 15:04 | W.PM.PROC2 ---
Procedure Note - Detailed Date of Procedure 09/06/25 Pre-op Diagnosis Missed SAB Post-op Diagnosis Same Procedure Performed Dilation and suction curettage Surgeon Donavan Reeves MD Anesthesia MAC and Local (1% lidocaine) Findings Products of conception Description of Procedure The patient was taken to the operating room where she was prepared and draped in the usual sterile fashion in the dorsal lithotomy position. The bladder was drained with a red rubber catheter. A sterile speculum was placed into the vagina. The anterior lip of the cervix was grasped with a single-tooth tenaculum. Ten mL of 1% lidocaine was administered in a paracervical block. The cervix was gently dilated using Hegar dilators until an 8mm dilator could be passed. The 8mm curved tip suction curette was advanced. Suction curettage was performed and products of conception were aspirated. Sharp curettage was then performed until a good uterine cry was noted. A final pass with the suction curette was made. The tenaculum was removed. Hemostasis was excellent. Sponge, lap, needle and instrument counts were correct. The patient was taken to the recovery room in stable condition. I was present and scrubbed for the entire procedure. Estimated Blood Loss 150 Drains No Packing No Pathology Yes (Endometrial curettings) Complications None Condition Stable Disposition PACU [facility] Billing Surgery - Charge Forward: Surgery Billing
[2025-09-06 15:06] VITALS: BP 112/68; PULSE 91; RESP 16; O2SAT 95
[2025-09-06] MEDS: fentaNYL CITRATE INJ (*CRX) 100 MCG/2 ML VIAL 25 MCG IV PUSH ×2 (15:21→15:31)
[2025-09-06 15:30] VITALS: BP 103/65; PULSE 85; O2SAT 100
[2025-09-06] MEDS: RHO(D) IMMUNE GLOBULIN 300 MCG/2 ML SYRINGE IM (15:30)
[2025-09-06] MEDS: oxyCODONE HCL (*CRX) 5 MG TAB IR PO (15:56)
[2025-09-06 16:00] VITALS: BP 95/66; PULSE 88; O2SAT 100
== END 2025-09-06 16:27 | disposition home or self-care (01) ==
PROVIDERS: PCP Family Medicine; Visit Provider Obstetrics & Gynecology
PROC: (CPT 59812; principal; 2025-09-06 14:30)
DX: O02.1 Missed abortion (principal); G89.18 Other acute postprocedural pain; K58.9 Irritable bowel syndrome, unspecified; F32.A Depression, unspecified; F41.9 Anxiety disorder, unspecified; F90.9 Attention-deficit hyperactivity disorder, unspecified type; Z90.13 Acquired absence of bilateral breasts and nipples; Z87.891 Personal history of nicotine dependence
CPT/HCPCS: 59812; 36415; 85461; 86850; 86900; 86901; 88305; 90384; A9270; J1885; J2003; J2250; J2704; J2790; J3010; J7120